=== PATIENT | female | born 1955 | race Caucasian/White ===

== ENCOUNTER 2020-09-21 14:06 | Inpatient (IN) | payer OTHER ==
[~2020-09-21] VITALS: Ht 167.6 cm; Wt 137.3 kg
[~2020-09-21 14:06] MED LIST: ESCI20; HYDMOR4 PO; LEVSOD25; NAPR500 PO; PENVK500 PO; RXTRAM50 PO; TRAM50 PO
[2020-09-21] MEDS ORDERED: Ventolin/Prove6.7 GM INH (14:18)
[2020-09-21] MEDS ORDERED: CITALOPRAM HBR20 M3 PO (14:18)
[2020-09-21] MEDS ORDERED: SYNTHROID137 MCG PO (14:19)
[2020-09-21] MEDS ORDERED: ROSU10TA PO (14:22)
[2020-09-21] MEDS ORDERED: B COMPLEX FORM0.4 MG PO (14:23)
[2020-09-21] MEDS ORDERED: Vitamin D2000 UNIT PO (14:23)
[2020-09-21] MEDS ORDERED: TURMERIC500 M2 PO (14:24)
[2020-09-21 14:35] LABS: BASOPHILS ABSOLUTE AUTO 0.03 K/mm3 (0.00-0.23); BASOPHILS PERCENT AUTO 0 % (0-2); EOSINOPHILS ABSOLUTE AUTO 0.01 K/mm3 (0.00-0.68); EOSINOPHILS PERCENT AUTO 0 % (0-6); Hematocrit 41.3 % (33.0-51.0); Hemoglobin 14.3 g/dL (11.5-16.0); IMMATURE GRAN ABSOLUTE AUTO 0.25 K/mm3 (0.00-0.10); IMMATURE GRAN PERCENT AUTO 3 % (0-1); LYMPHOCYTES ABSOLUTE AUTO 1.52 K/mm3 (0.84-5.20); LYMPHOCYTES PERCENT AUTO 15 % (21-46); MONOCYTES ABSOLUTE AUTO 0.92 K/mm3 (0.16-1.47); MONOCYTES PERCENT AUTO 9 % (4-13); Mean Corpuscular HGB 31.1 pg (26.0-34.0); Mean Corpuscular HGB Conc 34.6 g/dL (31.5-36.5); Mean Corpuscular Volume 90 fL (80-100); Mean Platelet Volume 9.1 fL (9.1-12.4); NEUTROPHILS ABSOLUTE AUTO 7.44 K/mm3 (1.96-9.15); NEUTROPHILS PERCENT AUTO 73 % (41-73); Platelet Count 259 K/mm3 (150-400); RDW Coefficient Variation 11.8 % (11.7-14.2); RDW Standard Deviation 38.6 fL (35.1-46.3); White Blood Cell Count 10.17 K/mm3 (4.00-11.30)
[2020-09-21 15:13] LABS: Alanine Aminotransfer (ALT/SGP 31 U/L (12-78); Albumin, Blood 2.5 g/dL (3.4-5.0); Albumin/Globulin Ratio 0.6 (0.8-1.8); Alk Phos 62 U/L (50-136); Anion Gap 10 mmol/L (6-16); Aspartate Aminotrans (AST/SGOT 38 U/L (12-37); Bilirubin, Total 0.4 mg/dL (0.1-1.0); Blood Urea Nitrogen 25 mg/dL (8-24); Bun/Creatinine Ratio 40.3 (12.0-20.0); CO2, Blood 27 mmol/L (21-32); Chloride, Blood 96 mmol/L (98-108); Creatinine, Blood 0.62 mg/dL (0.40-1.00); Globulin, Blood 4.5 g/dL (2.2-4.0); Glomerular Filtration Rate >60 (60-); Glucose, Blood 108 mg/dL (70-99); Potassium, Blood 3.5 mmol/L (3.5-5.5); Sodium, Blood 133 mmol/L (136-145); Troponin I <0.015 ng/mL (0.000-0.040)
[2020-09-21 15:14] LABS: Base Excess Venous 4.3 mmol/L; Bicarbonate Venous 27.3 mmol/L (24.0-30.0); PCO2 Venous 43.4 mmHg (38-42); PO2 Venous 43.2 mmHg (38-42); pH Blood Venous 7.43 (7.34-7.37)
[2020-09-21 16:15] LABS: SARS-Cov-2 (COVID-19) PCR, MMC POSITIVE (NEGATIVE)
[2020-09-21 19:25] LABS: U Amphetamine Screen Not Detected; U Barbituate Screen Not Detected; U Benzodiazapine Screen Not Detected; U Buprenorphine Screen Not Detected; U Cannabinoids Screen Not Detected; U Cocaine Screen Not Detected; U Methadone Screen Not Detected; U Methamphetamine Screen Not Detected; U Opiates Screen Not Detected; U Oxycodone Screen Not Detected; U Phencyclidine Screen Not Detected; U Propoxyphene Screen Not Detected
--- NOTE | 2020-09-22 03:48 | NUR ---
SHIFT SUMMARY PT ER ADMIT THIS SHIFT FOR COVID PNA. PT HAS BEEN STARED ON REMDESIVIR AND STEROIDS. SHE IS CURRENTLY ON 40% HEATED HIGH FLOW. SATS ABOVE 92%. LUNGS ARE DIMINISHED T/O. SHE DENIES SOB. PT INDEPENDENT TO THE BSC. PT A/OX4. NO ACUTE CHANGES SINCE ADMISSION. BED IN LOWEST POSITON, CALL LIGHT WITHIN REACH.
[2020-09-22 05:57] LABS: BASOPHILS ABSOLUTE AUTO 0.03 K/mm3 (0.00-0.23); BASOPHILS PERCENT AUTO 0 % (0-2); EOSINOPHILS PERCENT AUTO 0 % (0-6); Hematocrit 39.9 % (33.0-51.0); Hemoglobin 13.6 g/dL (11.5-16.0); IMMATURE GRAN ABSOLUTE AUTO 0.16 K/mm3 (0.00-0.10); IMMATURE GRAN PERCENT AUTO 2 % (0-1); LYMPHOCYTES ABSOLUTE AUTO 0.94 K/mm3 (0.84-5.20); LYMPHOCYTES PERCENT AUTO 11 % (21-46); MONOCYTES ABSOLUTE AUTO 0.38 K/mm3 (0.16-1.47); MONOCYTES PERCENT AUTO 4 % (4-13); Mean Corpuscular HGB 30.8 pg (26.0-34.0); Mean Corpuscular HGB Conc 34.1 g/dL (31.5-36.5); Mean Corpuscular Volume 91 fL (80-100); Mean Platelet Volume 9.4 fL (9.1-12.4); NEUTROPHILS ABSOLUTE AUTO 7.24 K/mm3 (1.96-9.15); NEUTROPHILS PERCENT AUTO 83 % (41-73); Platelet Count 283 K/mm3 (150-400); RDW Coefficient Variation 11.8 % (11.7-14.2); RDW Standard Deviation 39.2 fL (35.1-46.3); Red Blood Cell Count 4.41 M/mm3 (3.80-5.20); White Blood Cell Count 8.75 K/mm3 (4.00-11.30)
[2020-09-22 06:23] LABS: Anion Gap 6 mmol/L (6-16); Blood Urea Nitrogen 17 mg/dL (8-24); Bun/Creatinine Ratio 28.7 (12.0-20.0); CO2, Blood 29 mmol/L (21-32); Calcium, Blood 8.5 mg/dL (8.5-10.1); Chloride, Blood 99 mmol/L (98-108); Creatinine, Blood 0.59 mg/dL (0.40-1.00); Glomerular Filtration Rate >60 (60-); Glucose, Blood 152 mg/dL (70-99); Potassium, Blood 4.1 mmol/L (3.5-5.5); Sodium, Blood 134 mmol/L (136-145)
--- NOTE | 2020-09-22 11:44 | NUR ---
Admit: 09/21/20 Discharge: TBD Dx. Pneumonia due to COVID - 19 PCP: Piter Banuelos Fast Brim Pouncer: [facility] Physician: Humble Cotter Contact/gluer and wedger: Ronald Espinozaing, Family Member - [phone] [place]: Unknown
--- NOTE | 2020-09-22 13:59 | NUR ---
I had a wonderful visit with the patient: spent some time getting to know her. Fairly recently retired from over 30 years at [employer], and recently started reading the bible, which was a wonderful point of connection. I prayed for her full recovery from covid with no complications, spent some time reassuring her that she was in the right place, to rest and get the care she needed. She was very grateful for the visit.
--- NOTE | 2020-09-22 17:50 | NUR ---
SHIFT SUMMARY PATIENT DENIES PAIN AND NAUSEA, NO COUGH NOTED. MAINTAINING OXYGEN SATURATION ABOVE 92% ON AIRVO AT 40L/55% FI02. UP SBA TO BSC. POSITIVE BLOOD CULTURE TODAY, RUY STARTED. EATING AND DRINKING WELL. PLEASANT AND COOPERATIVE WITH CARE.
[2020-09-23 05:17] LABS: BASOPHILS ABSOLUTE AUTO 0.05 K/mm3 (0.00-0.23); BASOPHILS PERCENT AUTO 0 % (0-2); EOSINOPHILS PERCENT AUTO 0 % (0-6); Hematocrit 38.5 % (33.0-51.0); IMMATURE GRAN ABSOLUTE AUTO 0.48 K/mm3 (0.00-0.10); IMMATURE GRAN PERCENT AUTO 3 % (0-1); LYMPHOCYTES ABSOLUTE AUTO 1.64 K/mm3 (0.84-5.20); LYMPHOCYTES PERCENT AUTO 9 % (21-46); MONOCYTES ABSOLUTE AUTO 0.78 K/mm3 (0.16-1.47); MONOCYTES PERCENT AUTO 4 % (4-13); Mean Corpuscular HGB 30.8 pg (26.0-34.0); Mean Corpuscular HGB Conc 33.8 g/dL (31.5-36.5); Mean Corpuscular Volume 91 fL (80-100); Mean Platelet Volume 9.4 fL (9.1-12.4); NEUTROPHILS ABSOLUTE AUTO 15.68 K/mm3 (1.96-9.15); NEUTROPHILS PERCENT AUTO 84 % (41-73); Platelet Count 328 K/mm3 (150-400); RDW Coefficient Variation 11.9 % (11.7-14.2); RDW Standard Deviation 40.2 fL (35.1-46.3); Red Blood Cell Count 4.22 M/mm3 (3.80-5.20); White Blood Cell Count 18.63 K/mm3 (4.00-11.30)
[2020-09-23 05:36] LABS: Ferritin, Serum 233 ng/mL (8-252)
[2020-09-23 05:54] LABS: Alanine Aminotransfer (ALT/SGP 51 U/L (12-78); Albumin/Globulin Ratio 0.5 (0.8-1.8); Alk Phos 52 U/L (50-136); Anion Gap 6 mmol/L (6-16); Aspartate Aminotrans (AST/SGOT 54 U/L (12-37); Bilirubin, Total 0.2 mg/dL (0.1-1.0); Blood Urea Nitrogen 15 mg/dL (8-24); Bun/Creatinine Ratio 24.5 (12.0-20.0); CO2, Blood 24 mmol/L (21-32); Calcium, Blood 8.2 mg/dL (8.5-10.1); Chloride, Blood 106 mmol/L (98-108); Creatinine, Blood 0.61 mg/dL (0.40-1.00); Globulin, Blood 3.7 g/dL (2.2-4.0); Glomerular Filtration Rate >60 (60-); Glucose, Blood 141 mg/dL (70-99); Lactate Dehydrogenase (Ld),Bld 264 U/L (100-240); Magnesium, Blood 2.2 mg/dL (1.6-2.4); Phosphorus, Blood 2.7 mg/dL (2.5-4.9); Sodium, Blood 136 mmol/L (136-145); Total Protein, Blood 5.7 g/dL (6.4-8.2)
--- NOTE | 2020-09-23 06:05 | NUR ---
SOW FARM TECHNICIAN SUMMARY ALERT AND ORIENTED. AFFECT CHEERFUL WHEN SPOKEN TO. O2 PER AIRVO AT 40L/50%. MED TELE NORMAL SINUS IN THE 70'S. REMDESIVIR ADMINISTERED, WELL ANTIBIOTICS. NS CONTINURS AT 75 ML/HR FOR HYDRATION. DENIED PAIN THIS SHIFT. HAS BEEN RESTING QUIETLY WITH FEW INTERRUPTIONS NOTED, CALL LIGHT IN REACH. ISOLATION PRECAUTIONS MAINTAINED.
--- NOTE | 2020-09-23 17:20 | NUR ---
PT AOX4 AND PLEASANT PT HAS BEEN REMOVED FROM AIRVO AND IS ON OXIMIZER 6L. PT IS TOLERATING AT THIS TIME AND MAINTAINING LOW 90s. PT INDEPENDENT TO COMMODE AND CAN CALL APPROPRIATELY. NO DISTRESS NOTED MILD COUGH, BUT PT DENIES NEED FOR MEDICATION. WILL CONTINUE TO MONITOR.
[2020-09-24 05:50] LABS: BASOPHILS ABSOLUTE AUTO 0.04 K/mm3 (0.00-0.23); BASOPHILS PERCENT AUTO 0 % (0-2); EOSINOPHILS PERCENT AUTO 0 % (0-6); Hematocrit 35.1 % (33.0-51.0); IMMATURE GRAN ABSOLUTE AUTO 0.41 K/mm3 (0.00-0.10); IMMATURE GRAN PERCENT AUTO 2 % (0-1); LYMPHOCYTES ABSOLUTE AUTO 1.24 K/mm3 (0.84-5.20); LYMPHOCYTES PERCENT AUTO 7 % (21-46); MONOCYTES ABSOLUTE AUTO 0.72 K/mm3 (0.16-1.47); MONOCYTES PERCENT AUTO 4 % (4-13); Mean Corpuscular HGB 30.9 pg (26.0-34.0); Mean Corpuscular HGB Conc 34.2 g/dL (31.5-36.5); Mean Corpuscular Volume 91 fL (80-100); NEUTROPHILS ABSOLUTE AUTO 15.85 K/mm3 (1.96-9.15); NEUTROPHILS PERCENT AUTO 87 % (41-73); Platelet Count 335 K/mm3 (150-400); RDW Coefficient Variation 12.1 % (11.7-14.2); RDW Standard Deviation 40.1 fL (35.1-46.3); Red Blood Cell Count 3.88 M/mm3 (3.80-5.20); White Blood Cell Count 18.26 K/mm3 (4.00-11.30)
[2020-09-24 06:01] LABS: Anion Gap 5 mmol/L (6-16); Blood Urea Nitrogen 13 mg/dL (8-24); Bun/Creatinine Ratio 24.6 (12.0-20.0); CO2, Blood 29 mmol/L (21-32); Calcium, Blood 7.4 mg/dL (8.5-10.1); Chloride, Blood 106 mmol/L (98-108); Creatinine, Blood 0.53 mg/dL (0.40-1.00); Glomerular Filtration Rate >60 (60-); Glucose, Blood 143 mg/dL (70-99); Potassium, Blood 3.2 mmol/L (3.5-5.5); Sodium, Blood 140 mmol/L (136-145)
--- NOTE | 2020-09-24 06:26 | NUR ---
HIV NURSE SUMMARY IVF OF NS CONTINUES AT 50 ML/HR, REMDESIVIR GIVEN. MED TELE CONTINUES IN THE 70'S NSR. O2 AT 6L/MIN PER OXIMIZER. SATS CONTINUE IN THE 90'S. AFFECT CHEERFUL WHEN SPEAKING WITH STAFF. LUNG SOUNDS STILL DIMINISHED, BUT NO NOTED ACUTE RESP DISTRESS. ISOLATOIN PRECAUTIONS MAINTAINED. CALL LIGHT IN REACH
--- NOTE | 2020-09-24 18:57 | NUR ---
Shift Summary, The patient is A/OX4 to person, place, time and event. The patient has been pleasent and cooperative with her care. She is independent in the room and able to use the BSC. The patient is on nasal oxymizer at 3lpm and trending above 90% pulse ox. She has been titrated down from 6lpm this am. There has been no acute changes this shift. She is currently lying in her bed watching TV.
[2020-09-25 05:38] LABS: BASOPHILS ABSOLUTE AUTO 0.06 K/mm3 (0.00-0.23); BASOPHILS PERCENT AUTO 0 % (0-2); EOSINOPHILS PERCENT AUTO 0 % (0-6); Hematocrit 38.8 % (33.0-51.0); Hemoglobin 13.2 g/dL (11.5-16.0); IMMATURE GRAN ABSOLUTE AUTO 0.61 K/mm3 (0.00-0.10); IMMATURE GRAN PERCENT AUTO 4 % (0-1); LYMPHOCYTES ABSOLUTE AUTO 1.24 K/mm3 (0.84-5.20); LYMPHOCYTES PERCENT AUTO 8 % (21-46); MONOCYTES ABSOLUTE AUTO 0.54 K/mm3 (0.16-1.47); MONOCYTES PERCENT AUTO 4 % (4-13); Mean Corpuscular HGB 30.6 pg (26.0-34.0); Mean Corpuscular Volume 90 fL (80-100); NEUTROPHILS ABSOLUTE AUTO 12.35 K/mm3 (1.96-9.15); NEUTROPHILS PERCENT AUTO 84 % (41-73); Platelet Count 390 K/mm3 (150-400); RDW Standard Deviation 39.7 fL (35.1-46.3); Red Blood Cell Count 4.31 M/mm3 (3.80-5.20)
--- NOTE | 2020-09-25 06:11 | NUR ---
SHIFT SUMMARY- PT. A&O, ON 3.5L OXYMIZER. NO COMPLAINTS OF PAIN OR DISCOMFORT DURING THE NIGHT. SLEPT T/O THE NIGHT, NO APPARENT DISTRESS NOTED. CALL LIGHT WITHIN REACH AND SIDE RAILS UPX2. WILL CONT TO MONITOR.
[2020-09-25 06:26] LABS: Alanine Aminotransfer (ALT/SGP 47 U/L (12-78); Albumin, Blood 2.3 g/dL (3.4-5.0); Albumin/Globulin Ratio 0.6 (0.8-1.8); Alk Phos 55 U/L (50-136); Anion Gap 4 mmol/L (6-16); Aspartate Aminotrans (AST/SGOT 27 U/L (12-37); Bilirubin, Total 0.3 mg/dL (0.1-1.0); Blood Urea Nitrogen 11 mg/dL (8-24); Bun/Creatinine Ratio 19.8 (12.0-20.0); CO2, Blood 31 mmol/L (21-32); Calcium, Blood 8.3 mg/dL (8.5-10.1); Chloride, Blood 103 mmol/L (98-108); Creatinine, Blood 0.56 mg/dL (0.40-1.00); Globulin, Blood 3.6 g/dL (2.2-4.0); Glomerular Filtration Rate >60 (60-); Glucose, Blood 141 mg/dL (70-99); Potassium, Blood 3.3 mmol/L (3.5-5.5); Sodium, Blood 138 mmol/L (136-145); Total Protein, Blood 5.9 g/dL (6.4-8.2)
--- NOTE | 2020-09-25 17:51 | NUR ---
Shift Summary, The patient is A/0X4 TO PERSON, PLACE, TIME AND EVENT. THE PATIENT IS COPPERATIVE AND PLEASENT. She has been on 3.5lpm this am and was lowered to 3lpm and her pulse ox is averaging >90%. The patient worked with pt and she performed some leg exercises. Her pulse ox dripped during exercises but she is currently on her bedside eating and her pulse ox is 90%.
--- NOTE | 2020-09-25 18:21 | NUR ---
Update 09/25/20: Per chart review with Dr. Cotter this am, it is possible pt. will improve enough to discharge within 24-48 hours. Pt. lives with son who can assist her as needed. PT assessment indicates home with supervision will be appropriate. Pt. likely to need samples of Xarelto or Eliquise at discharge. Due to cost, will offer samples based on D/C med list.
--- NOTE | 2020-09-26 05:24 | NUR ---
SHIFT SUMMARY- PT. HAD NO ACUTE EVENTS OVERNIGHT. RESTED QUIETLY IN BED T/O THE NIGHT, NO APPARENT DISTRESS NOTED. ON 3L NC, VSS. DENIED COMPLAINTS DURING THE NIGHT. CALL LIGHT WITHIN REACH AND SIDE RAILS UPX2. WILL CONT TO MONITOR.
[2020-09-26 05:37] LABS: Hematocrit 41.2 % (33.0-51.0); Hemoglobin 13.9 g/dL (11.5-16.0); Mean Corpuscular HGB 30.6 pg (26.0-34.0); Mean Corpuscular HGB Conc 33.7 g/dL (31.5-36.5); Mean Corpuscular Volume 91 fL (80-100); Mean Platelet Volume 8.8 fL (9.1-12.4); Platelet Count 433 K/mm3 (150-400); RDW Coefficient Variation 12.1 % (11.7-14.2); RDW Standard Deviation 40.3 fL (35.1-46.3); Red Blood Cell Count 4.54 M/mm3 (3.80-5.20); White Blood Cell Count 15.31 K/mm3 (4.00-11.30)
[2020-09-26 06:07] LABS: Alanine Aminotransfer (ALT/SGP 45 U/L (12-78); Albumin, Blood 2.3 g/dL (3.4-5.0); Albumin/Globulin Ratio 0.6 (0.8-1.8); Alk Phos 57 U/L (50-136); Anion Gap 6 mmol/L (6-16); Aspartate Aminotrans (AST/SGOT 23 U/L (12-37); Bilirubin, Total 0.3 mg/dL (0.1-1.0); Blood Urea Nitrogen 13 mg/dL (8-24); Bun/Creatinine Ratio 23.5 (12.0-20.0); CO2, Blood 29 mmol/L (21-32); Calcium, Blood 8.2 mg/dL (8.5-10.1); Chloride, Blood 102 mmol/L (98-108); Creatinine, Blood 0.55 mg/dL (0.40-1.00); Globulin, Blood 3.7 g/dL (2.2-4.0); Glomerular Filtration Rate >60 (60-); Glucose, Blood 120 mg/dL (70-99); Sodium, Blood 137 mmol/L (136-145)
[2020-09-26 06:21] LABS: BASOPHILS PERCENT MAN 0 % (0-2); EOSINOPHILS PERCENT MAN 0 % (0-6); LYMPHOCYTES ABSOLUTE MAN 1.68 K/mm3 (0.84-5.20); LYMPHOCYTES PERCENT MAN 11 % (21-46); METAMYELOCYTE ABSOLUTE MAN 0.15 K/mm3 (0.00-0.00); METAMYELOCYTE PERCENT MAN 1 % (0-0); MONOCYTES ABSOLUTE MAN 0.91 K/mm3 (0.16-1.47); MONOCYTES PERCENT MAN 6 % (4-13); NEUTROPHILS ABSOLUTE MAN 12.55 K/mm3 (1.96-9.15); SEG NEUTROPHILS PERCENT MAN 82 % (41-73); TOTAL CELLS COUNTED 100
--- NOTE | 2020-09-26 11:23 | NUR ---
Spiritual care visit provided. Pt is much improved from my visit several days ago and said she is expecting to be discharged today. I said prayers of thankfulness and protection for her continued recovery. She expressed gratefulness for my visit today and for the previous visit also.
--- NOTE | 2020-09-26 15:58 | NUR ---
PT IS A/OX3, PLEASANT AND COOPERTIVE UP WITH MINIMAL ASSIST, THE PT APPEARS TO BE BREATHING EASILY ON O2 VIA OXYMIZER @ 3L/MIN. THE PT WORKED WITH THE PHYSICAL THERAPIST AND TOLERATED THE ACTIVITY BETTER THAN YESTERDAY, HOWEVER, HER O2 SAT'S DROPPED TO THE MID 80'S WITH ACTIVITY. PT IS SWITCHED TO NC THIS AFTERNOON. WILL CONTINUE TO MONITOR FOR CHANGES. CALL LIGHT IN REACH. PLAN FOR POSSIBLE DISCHARGE TOMMOROW
--- NOTE | 2020-09-27 06:23 | NUR ---
SHIFT SUMMARY- PT. ON 3L, SATS MAINTAINED. NO COMPLAINTS T/O THE NIGHT. APPEARED TO HAVE SLEPT COMFORTABLY DURING THE NIGHT, NO APPARENT DISTRESS NOTED. CALL LIGHT WITHIN REACH AND SIDE RAILS UPX2. WILL CONT TO MONITOR.
[2020-09-27] MEDS ORDERED: ACET325 PO (12:42)
[2020-09-27] MEDS ORDERED: FAMO40 PO (12:45)
[2020-09-27] MEDS ORDERED: GUAI600T33 PO (12:45)
[2020-09-27] MEDS ORDERED: IPRAT-ALBUT 0.5-3 ML (12:47)
[2020-09-27] MEDS ORDERED: POTA10T PO (12:48)
[2020-09-27] MEDS ORDERED: Vitamin B Comple1 EA PO (12:49)
[2020-09-27] MEDS ORDERED: LOW DOSE ASPIRI81 M1 PO (12:50)
[2020-09-27] MEDS ORDERED: Prednisone10 MG PO (12:50)
[2020-09-27] MEDS ORDERED: XARELTO10 M1 PO (12:51)
--- NOTE | 2020-09-27 16:10 | NUR ---
PT DISCHARGED @ APPROX 1610 VIA WHEELCHAIR. DISCHARGE INSTRUCTIONS REVIEWED. IV REMOVED AND SITE WNL. O2 DELIVERED BY [facility]. NEEDED RX FAXED TO PHARMACY.
== END 2020-09-27 16:00 | disposition home or self-care (01) | DRG 871 ==
LOC: ER 14:06 → ERHOLD 19:39 → MEDS 19:39
PROVIDERS: Emergency Medicine; Hospitalist; ADMIT Student in an Organized Health Care Education/Training Program
PROC: 8E0ZXY6 Isolation (ICD-10-PCS; principal; 2020-09-21)
PROC: XW033E5 Introduction of Remdesivir Anti-infective into Peripheral Vein, Percutaneous Approach, New Technology Group 5 (ICD-10-PCS; 2020-09-21)
PROC: 3E0333Z Introduction of Anti-inflammatory into Peripheral Vein, Percutaneous Approach (ICD-10-PCS; 2020-09-21)
DX: A41.89 Other specified sepsis (principal); U07.1 COVID-19; J12.82 Pneumonia due to coronavirus disease 2019; J96.01 Acute respiratory failure with hypoxia; Z66 Do not resuscitate; E87.6 Hypokalemia; J43.9 Emphysema, unspecified; I70.90 Unspecified atherosclerosis; E78.5 Hyperlipidemia, unspecified; E03.9 Hypothyroidism, unspecified; F17.290 Nicotine dependence, other tobacco product, uncomplicated; Z79.899 Other long term (current) drug therapy; Z98.890 Other specified postprocedural states; Z88.2 Allergy status to sulfonamides; Z88.5 Allergy status to narcotic agent; Z71.6 Tobacco abuse counseling
CPT/HCPCS: 36415; 71045; 71260; 80048; 80053; 82728; 82803; 83605; 83615; 83735; 83880; 84100; 84145; 84484; 85025; 85379; 86140; 87040; 93005; 93010; 94640; 94761; 94762; 96374-59; 96375-59; 97162; 97530; 97530-CQ; 99285-25; A9270; J0456; J1100; J1650; J2920; J2930; J3370; J7030; J7050; Q9967; U0004

== ENCOUNTER → 2022-11-12 | Outpatient (CLI) | payer OTHER ==
[~2022-11-12] MED LIST changes: +ACET325 PO; +B COMPLEX FORM0.4 MG PO; +CITALOPRAM HBR20 M3 PO; +FAMO40 PO; +GUAI600T33 PO; +IPRAT-ALBUT 0.5-3 ML; +LOW DOSE ASPIRI81 M1 PO; +POTA10T PO; +Prednisone10 MG PO; +ROSU10TA PO; +SYNTHROID137 MCG PO; +TURMERIC500 M2 PO; +Ventolin/Prove6.7 GM INH; +Vitamin B Comple1 EA PO; +Vitamin D2000 UNIT PO; +XARELTO10 M1 PO
== END | disposition home or self-care (01) ==
LOC: LAB SHORT 17:13 → LAB 17:13
DX: R82.90 Unspecified abnormal findings in urine (principal)
CPT/HCPCS: 87086

== ENCOUNTER 2022-12-15 04:56 | Inpatient (IN) | payer OTHER ==
[~2022-12-15] VITALS: Ht 170.2 cm; Wt 65.0 kg
[2022-12-15] VITALS (73 sets, daily range): BP systolic 71–176; BP diastolic 50–99
[2022-12-15 05:17] LABS: Base Excess Venous -5.3 mmol/L; Bicarbonate Venous 19.1 mmol/L (24.0-30.0); PCO2 Venous 66.4 mmHg (38-42); pH Blood Venous 7.16 (7.34-7.37)
[2022-12-15 05:24] LABS: Source, Urine Straight Cath
[2022-12-15 05:26] LABS: BASOPHILS ABSOLUTE AUTO 0.04 K/mm3 (0.00-0.23); BASOPHILS PERCENT AUTO 0 % (0-2); EOSINOPHILS ABSOLUTE AUTO 0.04 K/mm3 (0.00-0.68); EOSINOPHILS PERCENT AUTO 0 % (0-6); Hematocrit 37.9 % (33.0-51.0); Hemoglobin 12.8 g/dL (11.5-16.0); IMMATURE GRAN ABSOLUTE AUTO 0.39 K/mm3 (0.00-0.10); IMMATURE GRAN PERCENT AUTO 3 % (0-1); LYMPHOCYTES ABSOLUTE AUTO 4.52 K/mm3 (0.84-5.20); LYMPHOCYTES PERCENT AUTO 40 % (21-46); MONOCYTES ABSOLUTE AUTO 0.65 K/mm3 (0.16-1.47); MONOCYTES PERCENT AUTO 6 % (4-13); Mean Corpuscular HGB 32.7 pg (26.0-34.0); Mean Corpuscular HGB Conc 33.8 g/dL (31.5-36.5); Mean Corpuscular Volume 97 fL (80-100); Mean Platelet Volume 10.7 fL (9.1-12.4); NEUTROPHILS PERCENT AUTO 50 % (41-73); NRBC ABSOLUTE 0.05 K/mm3 (0.00-0.02); NRBC Auto 0.4 /100 WBC (0.0-0.2); Platelet Count 130 K/mm3 (150-400); RDW Coefficient Variation 14.6 % (11.7-14.2); RDW Standard Deviation 51.8 fL (35.1-46.3); Red Blood Cell Count 3.92 M/mm3 (3.80-5.20); White Blood Cell Count 11.34 K/mm3 (4.00-11.30)
[2022-12-15 05:36] LABS: Appearance, Urine Hazy (Clear); Bilirubin, Urine Neg (Neg); Blood, Urine 5+ (Neg); Color, Urine Yellow (P-Yellow); Glucose Qualitative, Urine 1+ (Neg); Ketones, Urine Neg (Neg); Leukocyte Esterase, Urine Neg (Neg); Nitrite, Urine Neg (Neg); Protein, Urine 3+ (Neg); Urobilinogen, Urine NORM (Normal)
[2022-12-15 05:41] LABS: Prothrombin Time Results 10.5 Sec (9.7-11.5)
[2022-12-15 05:49] LABS: Amorphous Light (0-Heavy); Bacteria Few /hpf; Squamous Epithelial Cells Many /hpf (Few); White Blood Cells, Urine 0-2 /hpf (0-5)
[2022-12-15 05:55] LABS: U Amphetamine Screen Not Detected; U Barbituate Screen Not Detected; U Benzodiazapine Screen Not Detected; U Buprenorphine Screen Not Detected; U Cannabinoids Screen DETECTED; U Cocaine Screen Not Detected; U Methadone Screen Not Detected; U Methamphetamine Screen Not Detected; U Opiates Screen Not Detected; U Oxycodone Screen Not Detected; U Phencyclidine Screen Not Detected; U Propoxyphene Screen Not Detected
[2022-12-15 06:04] LABS: Ethanol (Alcohol), Blood, Med <3 mg/dL; Magnesium, Blood 2.6 mg/dL (1.6-2.4); Salicylate 2.7 mg/dL (2.8-20.0)
[2022-12-15 06:18] LABS: Osmolality, Serum 270 mos/KG (275-300)
[2022-12-15 06:19] LABS: Alanine Aminotransfer (ALT/SGP 70 U/L (12-78); Albumin, Blood 3.8 g/dL (3.4-5.0); Albumin/Globulin Ratio 1.2 (0.8-1.8); Alk Phos 97 U/L (50-136); Anion Gap 12 mmol/L (6-16); Aspartate Aminotrans (AST/SGOT 205 U/L (12-37); Bilirubin, Total 0.3 mg/dL (0.1-1.0); Blood Urea Nitrogen 18 mg/dL (8-24); CO2, Blood 23 mmol/L (21-32); Chloride, Blood 89 mmol/L (98-108); Globulin, Blood 3.2 g/dL (2.2-4.0); Glomerular Filtration Rate 61 (60-); Glucose, Blood 221 mg/dL (70-99); Phosphorus, Blood 4.1 mg/dL (2.5-4.9); Potassium, Blood 3.9 mmol/L (3.5-5.5); Sodium, Blood 124 mmol/L (136-145)
[2022-12-15 06:20] LABS: Acetaminophen, Random <2.0 ug/mL (10.0-30.0)
--- NOTE | 2022-12-15 11:14 | NUR ---
100 MLS OF FENTANYL WASTED WITH TRICIA ALVAREZ RN AT 1100.
[2022-12-15 11:37] LABS: PCO2 Arterial 53.2 mmHg (35-45); PO2 Arterial 154 mmHg (80-100); pH Blood Arterial 7.31 (7.35-7.45)
--- NOTE | 2022-12-15 11:44 | NUR ---
PT ADMITTED TO ICU AT 09 FROM ER. PT INTUBATED IN ER FOR AIRWAY PROTECTION AFTER SEIZURE. VENT SETTINGS 16/350/70%/5. PT ARRIVED MINIMALLY RESPONSIVE, FENTANYL GTT STOPPED AT 0915 PRIOR TO TRANSFER TO ICU BED. FENTANYL WASTED W TRICIA ALVAREZ RN. PT'S PUPILS PINPOINT ON ARRIVAL. PT WITH POSSIBLE ABNORMAL MOVEMENT OF EXTREMITIES. EXTREMITIES RIDGID, AT TIMES ARMS WOULD COME UP ON CHEST, AND APPEARED TO BE DECORTICATE POSTURING AND AT OTHER TIMES PT APPEARED TO HAVE DECEREBRATE POSTURING, WITH ARMS TIGHT AT SIDES, TOES POINTED AND NECK FLEXED. PT ALSO NOTED TO HAVE FINE ARTIFACT ON EKG; SEIZURE ACTIVITY VS SHIVERING; ATIVAN GIVEN AND ARTIFACT STOPPED, EEG ORDERED. PT HYPOTENSIVE AT TIMES. PT ARRIVED W LEVOPHED AT 5MCG. DR BUSCH AT BEDSIDE WITHIN MINUTES OF ADMIT. CENTRAL LINE PLACED TO RIGHT FEM. AREA OOZING; FEM STOP PLACED W LIGHT PRESSURE. PT BRADYCARDIC IN THE 40'S, AT ONE POINT HR LOWERED TO 38; ATROPINE 1MG GIVEN W GOOD RESPONSE, BUT HR AGAIN TRENDED DOWNWARD TO 40'S. AT [address] BUSCH ASKED THAT DOPAMINE BE STARTED AT 10MCG. DOPAMINE HAD BEEN RUNNING UP TO 5MCG IN AN ATTEMPT TO INCREASE HR W/O EFFECT. ONCE DOPAMINE INCREASED TO 10MCG, HR DID INCREASE. LEVOPHED PLACED ON STANDBY SHORTLY AFTER FOR HYPERTENSION. ACTIVELY TITRATING DOPAMINE DOWN NOW PT CONTINUES TO BE HYPERTENSIVE. PT ARRIVED HYPOTHERMIC. BRYSON HUGGER PLACED ONCE BP STABLE. PT WAS 80.4, BRYSON HUGGER SET AT 38C. PT CHANGED TO FULL CODE PER FAMILY. SON AT BEDSIDE ALONG W PT'S SISTER; FAMILY UPDATED BY RN AND DR BUSCH. PT'S SON STATES SHE HAD STOPPED TAKING HER THYROID MEDS MONTHS AGO BECAUSE HER "THYROID LEVELS WHERE NORMAL".
--- NOTE | 2022-12-15 12:40 | NUR ---
OKAY TO TITRATE DOPAMINE FOR GOAL HR >50. TITRATING DOWN FOR HYPERTENSION AT THIS TIME. DOPAMINE AT 5MCG/KG/MIN. LEVOPHED OFF. VASOPRESSIN ORDERED, NEVER STARTED. LR AT 150CC/HR. PUPILS 3/3MM FIXED; ATROPINE GIVEN EARLIER. PT DOES RESPOND TO PAIN; WITHDRAWS. UNABLE TO CHECK GAG PT'S JAW IS LOCKED DOWN. PT COUGHED AND GRIMACED W ETT SUCTIONING.
--- NOTE | 2022-12-15 15:45 | NUR ---
DOPAMINE AT 4MCG, BP 93/71 MAP 80, HR 66 SINUS. PT GRIMACES W CARE, DOESNT ALLOW ORAL CARE, CLENCHES TEETH SHUT. EEG COMPLETE. PT HAS NOT HAD ANY SEDATION OTHER THAN ATIVAN 2MG ON ADMIT TO ICU. PUPILS 3/3MM FIXED, AGAIN ATROPINE GIVEN EARLIER.
[2022-12-15 16:13] LABS: BASOPHILS ABSOLUTE AUTO 0.02 K/mm3 (0.00-0.23); BASOPHILS PERCENT AUTO 0 % (0-2); EOSINOPHILS ABSOLUTE AUTO 0.01 K/mm3 (0.00-0.68); EOSINOPHILS PERCENT AUTO 0 % (0-6); Hematocrit 36.6 % (33.0-51.0); Hemoglobin 13.2 g/dL (11.5-16.0); IMMATURE GRAN ABSOLUTE AUTO 0.08 K/mm3 (0.00-0.10); IMMATURE GRAN PERCENT AUTO 1 % (0-1); LYMPHOCYTES ABSOLUTE AUTO 0.67 K/mm3 (0.84-5.20); LYMPHOCYTES PERCENT AUTO 6 % (21-46); MONOCYTES ABSOLUTE AUTO 0.68 K/mm3 (0.16-1.47); MONOCYTES PERCENT AUTO 6 % (4-13); Mean Corpuscular HGB 33.4 pg (26.0-34.0); Mean Corpuscular HGB Conc 36.1 g/dL (31.5-36.5); Mean Corpuscular Volume 93 fL (80-100); Mean Platelet Volume 11.7 fL (9.1-12.4); NEUTROPHILS PERCENT AUTO 88 % (41-73); Platelet Count 175 K/mm3 (150-400); RDW Coefficient Variation 14.5 % (11.7-14.2); RDW Standard Deviation 50.2 fL (35.1-46.3); Red Blood Cell Count 3.95 M/mm3 (3.80-5.20); White Blood Cell Count 12.16 K/mm3 (4.00-11.30)
--- NOTE | 2022-12-15 16:24 | NUR ---
DR OVALLES IN TO SEE PT, UPDATE GIVEN.
[2022-12-15 16:51] LABS: Albumin, Blood 3.1 g/dL (3.4-5.0); Albumin/Globulin Ratio 0.9 (0.8-1.8); Bilirubin, Total 0.3 mg/dL (0.1-1.0); Bun/Creatinine Ratio 15.5 (12.0-20.0); Calcium, Blood 7.3 mg/dL (8.5-10.1); Creatinine, Blood 0.84 mg/dL (0.40-1.00); Globulin, Blood 3.6 g/dL (2.2-4.0); Phosphorus, Blood 1.9 mg/dL (2.5-4.9); Potassium, Blood 5.1 mmol/L (3.5-5.5); Total Protein, Blood 6.7 g/dL (6.4-8.2)
--- NOTE | 2022-12-15 17:04 | NUR ---
1600 LABS CALLED TO [facility] ORDERED
--- NOTE | 2022-12-15 18:28 | NUR ---
DOPAMINE AT 5MCG. LEVOPHED REMAINS OFF. NS AT 150CC/HR. PIVOT 1.5 STARTED AT 30CC/HR; GOAL RATE. NA PHOS INFUSING. NO CHANGE IN NEURO ASSESS; PT REMAINS UNSEDATED, DOES NOT OPEN EYES OR FOLLLOW COMMAND. GRIMACES AND WITHDRAWS TO PAIN/NOXIOUS STIMULI.
--- NOTE | 2022-12-15 19:47 | NUR ---
ASSUMPTION OF CARE PT IS INTUBATED VIA ETT, INTACT AND PATENT TO VENT. BILATERAL BREATH SOUNDS PRESENT. SHE IS ON NO SEDATION, W/DRAWS TO TACTILE STIMULI-NO PURPOSEFUL MVT. SEIZURE ACTIVITY REPORTED EARLIER IN THE DAY, NONE NOTED AT THIS TIME. PT HAS DOPAMINE INFUSING TO MAINTAIN HR >50. PT IS SR ON THE MANAGER VALIDATION. BP WNL. OXYGEN SAT 100% AT THIS TIME. PT HAS TF INFUSING AT GOAL VIA OG TUBE. HERNANDES CATH INTACT PATENT AND DRAINING YELLOW URINE. RIGHT GROIN CVL REPORTED TO BE BLEEDING ON PRIOR SHIFT REQUIRING FEM STOP PLACEMENT. FEM STOP WAS REMOVED ON PRIOR SHIFT, NO ACTIVE BLEEDING NOTED AT TIME OF ASSESSMENT. DRESSING IS STAINED W/BLOOD AND INTACT.
--- NOTE | 2022-12-15 20:22 | NUR ---
SPOKE TO PT SON SHIRA AND UPDATED HIM ON PT CONDITION VIA PHONE
[2022-12-16] VITALS (98 sets, daily range): BP systolic 73–128; BP diastolic 54–82
[2022-12-16 04:30] LABS: PCO2 Arterial 46.3 mmHg (35-45); PO2 Arterial 79.6 mmHg (80-100); pH Blood Arterial 7.32 (7.35-7.45)
[2022-12-16 04:54] LABS: BASOPHILS ABSOLUTE AUTO 0.02 K/mm3 (0.00-0.23); BASOPHILS PERCENT AUTO 0 % (0-2); EOSINOPHILS ABSOLUTE AUTO 0.01 K/mm3 (0.00-0.68); EOSINOPHILS PERCENT AUTO 0 % (0-6); Hematocrit 37.1 % (33.0-51.0); Hemoglobin 12.9 g/dL (11.5-16.0); IMMATURE GRAN ABSOLUTE AUTO 0.04 K/mm3 (0.00-0.10); IMMATURE GRAN PERCENT AUTO 0 % (0-1); LYMPHOCYTES ABSOLUTE AUTO 0.41 K/mm3 (0.84-5.20); LYMPHOCYTES PERCENT AUTO 3 % (21-46); MONOCYTES ABSOLUTE AUTO 0.43 K/mm3 (0.16-1.47); MONOCYTES PERCENT AUTO 4 % (4-13); Mean Corpuscular HGB 32.7 pg (26.0-34.0); Mean Corpuscular HGB Conc 34.8 g/dL (31.5-36.5); Mean Corpuscular Volume 94 fL (80-100); NEUTROPHILS ABSOLUTE AUTO 11.21 K/mm3 (1.96-9.15); NEUTROPHILS PERCENT AUTO 93 % (41-73); NRBC ABSOLUTE 0.02 K/mm3 (0.00-0.02); NRBC Auto 0.2 /100 WBC (0.0-0.2); Platelet Count 112 K/mm3 (150-400); RDW Coefficient Variation 14.8 % (11.7-14.2); RDW Standard Deviation 51.7 fL (35.1-46.3); Red Blood Cell Count 3.94 M/mm3 (3.80-5.20); White Blood Cell Count 12.12 K/mm3 (4.00-11.30)
[2022-12-16 05:21] LABS: Magnesium, Blood 1.9 mg/dL (1.6-2.4)
[2022-12-16 05:32] LABS: Bilirubin, Total 0.3 mg/dL (0.1-1.0); Bun/Creatinine Ratio 9.3 (12.0-20.0); Calcium, Blood 7.1 mg/dL (8.5-10.1); Creatinine, Blood 1.08 mg/dL (0.40-1.00); Globulin, Blood 3.1 g/dL (2.2-4.0); Phosphorus, Blood 2.7 mg/dL (2.5-4.9); Potassium, Blood 3.2 mmol/L (3.5-5.5); Total Protein, Blood 6.1 g/dL (6.4-8.2)
--- NOTE | 2022-12-16 07:00 | NUR ---
ASSUMPTION OF CARE: ASSUMED CARE OF PATIENT WITH JOSE LUIS SAEZ. PATIENT INTUBATED AND SEDATED. TOLERATING THE ETT AT THIS TIME. PROPOFOL GTT AT 10 MCG/KG/MIN, DOPAMINE AT 7 MCG/KG/MIN, AND NS AT 150 ML/HR. ETT IS 7.5 CM WITH PLACEMENT 23.0 CM AT THE LIPS. VENT SETTINGS: 16/350/5/40%. PATIENT IS NOT RESPONDING TO VOICE AT THIS TIME. NO TWITCHING OR MUSCLE SPASMS NOTED.
--- NOTE | 2022-12-16 17:16 | NUR ---
Pt resting in bed with eyes closed and intubated. No family at bedside. Discussed case with Primary RN Karyn. Reviewed plan of care. Palliative Care will F/U for supportive visits when family is at bedside.
--- NOTE | 2022-12-16 19:15 | NUR ---
ASSUMPTION OF CARE: RECEIVED REPORT FROM MELLISA RN AND JOSE LUIS RN. PT INTUBATED AND SEDATED. PROPOFOL TURNED DOWN TO 10 MCG/KG/HR FOR ASSESSMENT. ABLE TO WAKE UP AND RESPOND TO VERBAL STIMULI. FOLLOWS COMMANDS AND ANSWERS YES AND NO QUESTIONS. PT BECOMES AGITATED WHEN SEDATION TURNED DOWN PULLS ON RESTRAINTS AND FIGHTS THE VENTILATOR. SEDATION TURNED BACK UP TO 25 MCG/KG/HR FOR COMFORT AND COMPLIANCE, WITH AN ADDITIONAL DOSE OF 1MG ATIVAN GIVEN PER APR. PT DENIES PAIN WHEN AWAKE. VENT SETTINGS AC/VC 16/350/5/30% WITH SATS >92%. LUNG SOUNDS CLEAR AND DIM. SUCTIONING SMALL AMOUNTS OF THICK, WHITE SECRETIONS FROM ET TUBE. DOPAMINE INFUSING AT 6 MCG/KG/MIN TO MAINTAIN MAP >65. HR 70'S-80'S. TUBE FEED AT GOAL. HERNANDES IN PLACE FOR STRICT I&O, PATENT AND DRAINING TO GRAVITY. CENTRAL LINE TO RIGHT GROIN, INFUSING. NS AT 150 ML/HR.
--- NOTE | 2022-12-16 19:21 | NUR ---
SHIFT SUMMARY: NEURO: NO SEIZURE ACTIVITY OR TWITCHING NOTED DURING THE SHIFT. DURING THE SEDATION INTERRUPTION, PATIENT EXPERIENCED AGITATION (PULLING AT RESTRAINTS AND TURNING BODY SIDE TO SIDE) AND VENT INTOLERANCE. PATIENT DID NOT FOLLOW DIRECTIONS THROUGHOUT THE SHIFT. PATIENT WITHDREW FROM NOXIOUS STIMULI. NO ABNORMAL POSTURING NOTED. PATIENT OPENED EYES ONCE TO NOXIOUS STIMULI AT THE END OF SHIFT. CARDIAC: PATIENT CONTINUES TO REQUIRE DOPAMINE GTT TO MAINTAIN MAPS >65. ABLE TO TITRATE TO 6 MCG/KG/MIN. HR IN THE 70S. PULSES FAINT, BUT PRESENT IN ALL FOUR EXTREMITIES. HANDS AND FEET ARE COOL. RIGHT FOOT IS RED/PURPLE ON THE BOTTOM AND SIDES. PATIENT'S SON REPORTS THAT THIS WAS PRESENT PRIOR TO ADMISSION. RESPIRATORY: PATIENT INTUBATED. VENT 7.5CM WITH PLACEMENT 23.0CM AT THE LIPS. SETTINGS 16/350/5/30%. LUNG SOUNDS WHEEZY AT TIMES. TOLERATING VENT WITH PROPOFOL GTT AT 15-20 MCG/KG/MIN. GI/: HERNANDES IN PLACE AND DRAINING FREELY. URINE OUTPUT IS YELLOW IN COLOR. NO SEDIMENT OR FOUL ODOR NOTED. TUBE FEED CONTINUES AT GOAL RATE OF 30 ML/HR. NO BOWEL MOVEMENT THIS SHIFT. PSYCHSOCIAL: PATIENT'S SISTER AND BOTH SONS TO VISIT THE PATIENT TODAY. THE OLDER SON REPORTED THAT HE AND HIS YOUNGER BROTHER ARE NOT ON SPEAKING TERMS AND THEREFORE HE IS "LEFT OUT OF THE LOOP". FAMILY CALM AND SUPPORTIVE AT THE BEDSIDE. MUSCULOSKELETAL: PATIENT HAS EQUAL MOVEMENT IN ALL FOUR EXTREMITIES. BOTH ANKLES ARE STIFF AND HAVE MINIMAL ROM.
[2022-12-17] VITALS (97 sets, daily range): BP systolic 48–157; BP diastolic 32–106
[2022-12-17 04:14] LABS: BASOPHILS ABSOLUTE AUTO 0.02 K/mm3 (0.00-0.23); BASOPHILS PERCENT AUTO 0 % (0-2); EOSINOPHILS PERCENT AUTO 0 % (0-6); Hemoglobin 11.9 g/dL (11.5-16.0); IMMATURE GRAN ABSOLUTE AUTO 0.06 K/mm3 (0.00-0.10); IMMATURE GRAN PERCENT AUTO 1 % (0-1); LYMPHOCYTES ABSOLUTE AUTO 0.52 K/mm3 (0.84-5.20); LYMPHOCYTES PERCENT AUTO 5 % (21-46); MONOCYTES ABSOLUTE AUTO 0.26 K/mm3 (0.16-1.47); MONOCYTES PERCENT AUTO 2 % (4-13); Mean Corpuscular HGB 33.1 pg (26.0-34.0); Mean Corpuscular Volume 95 fL (80-100); NEUTROPHILS PERCENT AUTO 92 % (41-73); NRBC ABSOLUTE 0.02 K/mm3 (0.00-0.02); NRBC Auto 0.2 /100 WBC (0.0-0.2); Platelet Count 95 K/mm3 (150-400); RDW Coefficient Variation 15.5 % (11.7-14.2); RDW Standard Deviation 54.4 fL (35.1-46.3); Red Blood Cell Count 3.59 M/mm3 (3.80-5.20); White Blood Cell Count 10.76 K/mm3 (4.00-11.30)
[2022-12-17 05:38] LABS: Albumin, Blood 2.6 g/dL (3.4-5.0); Albumin/Globulin Ratio 0.9 (0.8-1.8); Bilirubin, Total 0.2 mg/dL (0.1-1.0); Calcium, Blood 7.3 mg/dL (8.5-10.1); Phosphorus, Blood 1.4 mg/dL (2.5-4.9); Potassium, Blood 3.6 mmol/L (3.5-5.5); Total Protein, Blood 5.6 g/dL (6.4-8.2)
--- NOTE | 2022-12-17 06:04 | NUR ---
SHIFT SUMMARY: PT REMAINS INTUBATED AND SEDATED T/O THE SHIFT. AWAKENS TO VERBAL STIMULI, FOLLOWS DIRECTIONS, ABLE TO NOD YES AND NO TO QUESTIONS BUT BECOMES AGITATED AND PULLS AGAINST RESTRAINTS WHEN SEDATION TURNED DOWN. PROPOFOL AT 20 MCG/KG/MIN. DOPAMINE AT 6 MCG/KG/MIN, ATTEMPTED TO TITRATE DOWN T/O THE SHIFT BUT WAS UNABLE. MAP REMAINS >65. HR 70'S-80'S. VENT SETTINGS AC/VC 16/350/5/30%. SPO2 >90%. THICK SECRETIONS BEING SUCTIONED THROUGH ET TUBE. NO SEIZURE LIKE ACTIVITY NOTED T/O SHIFT. TUBE FEED REMAINS AT GOAL. HERNANDES IN PLACE FOR STRICT I&O, PATENT AND DRAINING TO GRAVITY. CENTRAL LINE IN RIGHT GROIN, REMAINS PATENT. NS AT 150 ML/HR. SON CALLED IN THE NIGHT AND UPDATED TO PLAN OF CARE.
--- NOTE | 2022-12-17 07:00 | NUR ---
ASSUMPTION OF CARE: ASSUMED CARE OF PATIENT WITH SAM VEGAS. PATIENT INTUBATED AND RESTING IN BED. LIMBS ARE STILL CURRENTLY. VENT SETTINGS: 16/250/5/30%. SPO2 IN THE MID 90S. MAPS >65. HR IN THE 80S. HERNANDES CATHETER IN PLACE AND DRAINING FREELY. URINE OUTPUT IS CLEAR YELLOW.
--- NOTE | 2022-12-17 11:00 | NUR ---
EXTUBATION: PATIENT FOLLOWING DIRECTIONS THIS AM. PROPOFOL STOPPED AT 09:35. PATIENT BECAME INCREASINGLY AGITATED WITH THE ETT. PATIENT EXTUBATED AT 10:25. PATIENT FAILED NC AND MASK. PATIENT HAD A PERIOD OF NONRESPONSIVENESS. SKIN COLOR RODRIGUEZ. DR. BUSCH AT BEDSIDE. JAW THRUST PERFORMED. PATIENT BECAME RESPONSIVE AGAIN. PLACED ON BIPAP.
--- NOTE | 2022-12-17 15:30 | NUR ---
BIPAP + RESTRAINTS Plan of care discussed with Dr Rosenberg. Pt continues to reach for BiPAP mask when restraints are not in place and remove it despite 1:1 sitter and precedex. For this reason, restraints remain in place for patient safety, despite using BiPAP. Sitter remains in place because pt still continues to slide down in bed and sit forward to reach face to restrained hand and also tries to pull at central line to right groin. While precedex is being used, titration is judicious and will not be ordered for increased dosing of 1.4 mcg/kg/hr due to frail resp status per v/o Dr Rosenberg.
--- NOTE | 2022-12-17 17:15 | NUR ---
AFTERNOON DECLINE: PATIENT AGITATED THROUGHOUT THE AFTERNOON RELATED TO BIPAP. SITTER OBTAINED. PATIENT CONTINUES TO BE ABLE TO SUCCESSFULLY INTERRUPT BIPAP THERAPY. PATIENT AGITATED AND SWATTING AT STAFF. DISCUSSED WITH DR. BUSCH AND PATIENT STARTED ON PRECEDEX DRIP. DRIP TITRATED UP WHILE MONITORING HEMODYNICS. PATIENT INITIALLY TOLERATED. AROUND 16:15, PATIENT BECAME INCREASINGLY NONRESPONSIVE AND BLOOD PRESSURES DECLINED WITH MAPS IN THE 40S. DR. BUSCH AT BEDSIDE. NS BOLUS STARTED. PRECEDEX GTT STOPPED. PATIENT REGAINED ABILITY TO FOLLOW DIRECTIONS AND OPEN EYES. ATTEMPTING TO ANSWER QUESTIONS AT TIMES. ABLE TO NOD HEAD IN RESPONSE TO QUESTIONS. BOLUS AND STOPPING OF PRECEDEX PROVIDED SOME IMPROVEMENT. DISCUSSED WITH DR. BUSCH. RESTARTED DOPAMINE GTT. BLOOD PRESSURES ARE IMPROVING. PATIENT CONTINUES TO ATTEMPT TO PULL MASK OFF. SITTER AT BEDSIDE. TEMPERATURE CONTINUES TO BE LOW. WHEN BLOOD PRESSURES WERE LOW, DISCONTINUED WARMING EFFORTS. USED RECTAL PROBE TO VERIFY THAT THE HERNANDES CORE TEMPERATURE WAS READING CORRECTLY.
[2022-12-17 17:34] LABS: Hematocrit 26.7 % (33.0-51.0)
--- NOTE | 2022-12-17 17:56 | NUR ---
INTUBATION: DR. BUSCH, 2 RTs AND 2 RNs TO BEDSIDE PREPPING FOR INTUBATION. 1758: 50 MG PROPOFOL IV PUSH 1759: INTUBATION BY DR. BUSCH. 8.0 ET TUBE, 23 CM AT GUMS. + ETCO2 COLOR CHANGE, BILATERAL BREATH SOUNDS EQUAL 1802: OG TUBE PLACED
[2022-12-17 18:22] LABS: Bun/Creatinine Ratio 12.7 (12.0-20.0); Calcium, Blood 7.9 mg/dL (8.5-10.1); Creatinine, Blood 1.02 mg/dL (0.40-1.00); Potassium, Blood 4.2 mmol/L (3.5-5.5)
[2022-12-17 18:46] LABS: PCO2 Venous 63 mmHg (38-42); pH Blood Venous 7.17 (7.34-7.37)
[2022-12-17 18:47] LABS: Base Excess Venous -5.7 mmol/L; Bicarbonate Venous 19.5 mmol/L (24.0-30.0)
--- NOTE | 2022-12-17 19:15 | NUR ---
ASSUMPTION OF CARE: RECEIVED REPORT FROM SAM RN AND MELLISA RN. PT INTUBATED AND SEDATED. SEDATION TURNED DOWN TO 10 MCG/KG/MIN DURING ASSESSMENT. PT ABLE TO WAKE UP AND RESPOND TO VERBAL STIMULI. SHAKES HEAD YES AND NO TO QUESTIONS AND FOLLOWS COMMANDS, DENIES PAIN. PROPOFOL TURNED BACK UP TO 15 MCG/KG/MIN AFTER ASSESSMENT FOR COMFORT AND VENT COMPLIANCE. PT STILLS AROUSES EASILY, BUT IS RESTING. VENT SETTINGS AC/VC 16/350/5/40%. SPO2 >94%. SUCTIONING SMALL, THICK SECRETIONS FROM ET TUBE. DOPAMINE INFUSING AT 5 MCG/KG/MIN TO MAINTAIN MAP >65. SR WITH HR 70'S-80'S. BEAR HUGGER ON PT TO AID IN WARMING, TEMP AT 96.[address], PATENT AND DRAINING YELLOW URINE. CENTRAL LINE TO RIGHT GROIN, PATENT BUT OOZING AROUND INSERTION SITE. TUBE FEED AT GOAL. NS AT 150 ML/HR. BED LOW AND LOCKED.
--- NOTE | 2022-12-17 19:28 | NUR ---
SHIFT SUMMARY: NEURO: THIS MORNING PATIENT OPENING EYES TO VERBALI STIMULI. NODDING HEAD IN RESPONSE TO QUESTIONS. FOLLOWING DIRECTIONS TO SQUEEZE HANDS. POST EXTUBATION, PATIENT CONTINUED TO NOD HEAD AND MOUTH ANSWERS TO STAFF. HOWEVER, DURING TRIAL OF NC, MASK, AND BIPAP, PATIENT CONTINUED TO ATTEMPT TO PULL O2 DEVICE OFF. PATIENT WOULD NOD HEAD THAT SHE UNDERSTOOD TO LEAVE IT IN PLACE, AND THEN WOULD SHIMMY DOWN IN BED AND ATTEMPT TO PULL OFF THE O2 DELIVERY DEVICE. ONCE REINTUBATED, PATIENT PLACED ON PROPOFOL AT 30 MCG/KG/MIN. PATIENT RESTING COMFORTABLY IN BED AND TOLERATING THE VENT AT THE END OF SHIFT. RESPIRATORY: PATIENT EXTUBATED IN THE AM. PATIENT DID NOT TOLERATE NC, MASK OR BIPAP. ON BIPAP, PATIENT CYCLED BETWEEN VERY LOW MINUTE VENTILATIONS TO VERY HIGH MINUTE VENTILATIONS. PATIENT EXPERIENCED A DECLINE LATE AFTERNOON (SEE NURSE'S NOTE) THAT REQUIRED THAT PATIENT BE REINTUBATED. 7.5CM ETT PLACED AT 23.0 CM AT THE GUMS. VENT SETTINGS 16/350/5/40%. CARDIAC: ABLE TO WEEN PATIENT OFF OF DOPAMINE GTT. PATIENT WAS OFF FOR ABOUT 3 HOURS. DURING THE AFTERNOON, PATIENT SHOWED A HEMODYNAMIC DECLINE (SEE NURSES NOTE) AND REQUIRED STARTING THE DOPAMINE. PATIENT'S BLOOD PRESSURES AND MAPS INCREASED. MAPS >65. ATTEMPTED TO TITRATE THE DOPAMINE AGAIN, BUT PATIENT'S HR IN THE 40S. CONTINUED DOPAMINE GTT AT 5 MCG/KG/MIN. GI/: NO BOWEL MOVEMENT DURING THE SHIFT. ONCE RE-INTUBATED, OGT PLACED, PLACEMENT VERIFIED, AND TUBE FEEDINGS RESUMED AT 30ML/HR PER DR BUSCH. HERNANDES CATHETER IN PLACE AND DRAINING FREELY. URINE IS AN PARKER/DARK YELLOW COLOR AND CLOUDY. DRAINING FREELY. MUSCULOSKELETAL/INTEGUMENTARY: RIGHT FOOT CONTINUES TO BE A DARK RED/PURPLE IN COLOR - BLANCHABLE. DISCUSSED PINK SKIN ALTERATION ON LIGHT THIGH/KNEE WITH DR. BUSCH. CREAM ORDERED AND APPLIED. PATIENT MOVING ALL FOUR LIMBS FREELY. PSYCHSOCIAL: PATIENT'S ELDER SON ERIKA CAME TO VISIT THE PATIENT. HE REPORTED FEELING DISTRESSED SEEING THE PATIENT IN HER CONDITION AND REQUESTED THAT DR. OVALLES CALL HIM RATHER THAN WAITINGL FOR HIM TO COME BY. (MESSAGE LEFT FOR DR. OVALLES THAT SON WAS AT BEDSIDE). PATIENT'S SON SHIRA CALLED THIS AFTERNOON FOR AN UPDATE.
[2022-12-18] VITALS (94 sets, daily range): BP systolic 83–126; BP diastolic 55–85
[2022-12-18 03:49] LABS: BASOPHILS ABSOLUTE AUTO 0.01 K/mm3 (0.00-0.23); BASOPHILS PERCENT AUTO 0 % (0-2); EOSINOPHILS PERCENT AUTO 0 % (0-6); Hematocrit 30.8 % (33.0-51.0); Hemoglobin 10.6 g/dL (11.5-16.0); IMMATURE GRAN ABSOLUTE AUTO 0.08 K/mm3 (0.00-0.10); IMMATURE GRAN PERCENT AUTO 1 % (0-1); LYMPHOCYTES ABSOLUTE AUTO 0.65 K/mm3 (0.84-5.20); LYMPHOCYTES PERCENT AUTO 6 % (21-46); MONOCYTES ABSOLUTE AUTO 0.46 K/mm3 (0.16-1.47); MONOCYTES PERCENT AUTO 4 % (4-13); Mean Corpuscular HGB 32.7 pg (26.0-34.0); Mean Corpuscular HGB Conc 34.4 g/dL (31.5-36.5); Mean Corpuscular Volume 95 fL (80-100); Mean Platelet Volume 10.5 fL (9.1-12.4); NEUTROPHILS ABSOLUTE AUTO 9.41 K/mm3 (1.96-9.15); NEUTROPHILS PERCENT AUTO 89 % (41-73); NRBC ABSOLUTE 0.03 K/mm3 (0.00-0.02); NRBC Auto 0.3 /100 WBC (0.0-0.2); Platelet Count 66 K/mm3 (150-400); RDW Standard Deviation 56.3 fL (35.1-46.3); Red Blood Cell Count 3.24 M/mm3 (3.80-5.20); White Blood Cell Count 10.61 K/mm3 (4.00-11.30)
[2022-12-18 04:08] LABS: Bun/Creatinine Ratio 11.2 (12.0-20.0); Calcium, Blood 8.1 mg/dL (8.5-10.1); Creatinine, Blood 1.07 mg/dL (0.40-1.00); Phosphorus, Blood 2.1 mg/dL (2.5-4.9); Potassium, Blood 4.2 mmol/L (3.5-5.5)
--- NOTE | 2022-12-18 05:57 | NUR ---
SHIFT SUMMARY: PT REMAINS INTUBATED AND SEDATED. PROPOFOL AT 35 MCG/KG/MIN FOR COMFORT AND VENT COMPLIANCE. VENT SETTINGS 16/350/5/40%. SPO2 >94%. CARDIAC MONITORING SHOWS SR WITH RATE 70'S. DOPAMINE AT 5 MCG/KG/MIN FOR MAP >65. PT AWAKENS TO VERBAL STIMULI AND FOLLOWS COMMANDS. TUBE FEED INFUSING AT GOAL. NO BM THIS SHIFT. HERNANDES PATENT AND DRAINING TO GRAVITY YELLOW URINE. CENTRAL LINE TO RIGHT GROIN HAS SOME MINIMAL OOZING AROUND INSERTION SITE. PERIORBITAL AND SCLERAL EDEMA NOTED WITH SOME MINIMAL OOZING IN RIGHT EYE. NS AT 150 ML/HR. SON MARY CALLED FOR AN UPDATE.
--- NOTE | 2022-12-18 07:00 | NUR ---
ASSUMPTION OF CARE: ASSUMED CARE OF PATIENT WITH SAM VEGAS. PATIENT CALMLY RESTING IN BED. VENT SETTINGS 16/350/5/40%. 8.0 CM ETT PLACED AT 23.0 CM AT THE GUMS. PATIENT NOT RESPONSIVE TO VERBAL STIMULI AT THIS TIME. HERNANDES IN PLACE AND DRAINING FREELY. URINE IS A DARK YELLOW. TUBE FEED INFUSING AT 30 ML/HR.
[2022-12-18 09:56] LABS: PCO2 Arterial 44.7 mmHg (35-45); PO2 Arterial 89.6 mmHg (80-100); pH Blood Arterial 7.38 (7.35-7.45)
--- NOTE | 2022-12-18 18:05 | NUR ---
END OF SHIFT SUMMARY: NEURO: PATIENT WITHDRAWING TO PAIN IN ALL 4 EXTREMITIES THROUGHOUT THE SHIFT. PUPILS ARE SLUGGISH. NO CORNEAL REFLEX NOTED. DURING SEDATION INTERRUPTION, PATIENT NODDING HER HEAD IN RESPONSE TO QUESTIONS. ABLE TO FOLLOW DIRECTIONS OF SQUEEZING HANDS AND WIGGLING TOES. ABLE TO HALF OPEN EYES. QUICKLY BECAME AGITATED: PULLING AT RESTRAINTS AND BITTING ETT. AGITATATION QUICKLY ABATED ONCE PROPOFOL RESTARTED. PATIENT STAYED AT 35 MCG/KG/MIN THROUGHOUT THE SHIFT. RESPIRATORY: PATIENT INTUBATED. VENT SETTINGS 16/350/5/40% THROUGHT THE SHIFT. PATIENT TOLERATED WELL. 8.0 CM ETT PLACED AT 23.0 CM AT THE GUMS. SPO2 >95%. CARDIAC: DOPAMINE GTT CONTINUES AT 5 MCG/KG/MIN. MAPS >65. IN THE MORNING, SBPS IN THE HIGH 80S. BY THE END OF THE SHIFT, SBPS 100S-110S. CONTINUES TO HAVE EDEMA IN HER FEET, ANKLES, FACE, AND HANDS. ABLE TO PALPATE BOTH PEDIS PULSES THROUGHOUT THE DAY. GI/: HERNANDES IN PLACE AND DRAINING FREELY. URINE IMPROVED IN COLOR TO A LIGHT YELLOW. PATIENT PASSING GAS. BOWEL CARE GIVEN. INTEGUMENTARY: RIGHT FOOT REMAINS RED/PURPLE IN COLOR. PINK SKIN CHANGES TO LEFT THIGH AND KNEES IMPROVED WITH NYSTATIN CREAM. PSYCHSOCIAL: PATIENT VISITED BY BOTH SONS AT DIFFERENT TIMES TODAY.
--- NOTE | 2022-12-18 19:15 | NUR ---
ASSUMPTION OF CARE: RECEIVED REPORT FROM FLORIAN TOVAR. PT INTUBATED AND SEDATED. VENT SETTINGS AC/VC 16/350/5/40%. SPO2 >94%. PROPOFOL TURNED DOWN TO 20 MCG/KG/MIN FOR ASSESSMENT. PT ABLE TO OPEN EYES TO VERBAL STIMULI, DENIES DISCOMFORT. ABLE TO SHAKE HEAD YES/NO TO QUESTIONS AND FOLLOW COMMANDS. PROPOFOL TURNED BACK UP 30 MCG/KG/MIN FOR COMFORT R/T PT FIGHTING VENT AND PULLING AGAINST RESTRAINTS. DOPAMINE AT 4 MCG/KG/MIN FOR MAP >65. SR, HR 80'S. TUBE FEED AT GOAL THROUGH OGT. NO BM YET. HERNANDES DRAINING TO GRAVITY. CENTRAL LINE TO RIGHT GROIN HAS SOME OOZING AT INSERTION SITE, PATENT AND INFUSING. SCLERAL EDEMA NOTED BILATERALLY. SEE SHIFT ASSESSMENT FOR FULL ASSESSMENT.
[2022-12-19] VITALS (90 sets, daily range): BP systolic 81–137; BP diastolic 51–99
[2022-12-19 04:00] LABS: BASOPHILS ABSOLUTE AUTO 0.01 K/mm3 (0.00-0.23); BASOPHILS PERCENT AUTO 0 % (0-2); EOSINOPHILS ABSOLUTE AUTO 0.01 K/mm3 (0.00-0.68); EOSINOPHILS PERCENT AUTO 0 % (0-6); Hematocrit 29.1 % (33.0-51.0); IMMATURE GRAN ABSOLUTE AUTO 0.17 K/mm3 (0.00-0.10); IMMATURE GRAN PERCENT AUTO 2 % (0-1); LYMPHOCYTES ABSOLUTE AUTO 0.83 K/mm3 (0.84-5.20); LYMPHOCYTES PERCENT AUTO 11 % (21-46); MONOCYTES ABSOLUTE AUTO 0.64 K/mm3 (0.16-1.47); MONOCYTES PERCENT AUTO 9 % (4-13); Mean Corpuscular HGB 32.8 pg (26.0-34.0); Mean Corpuscular HGB Conc 34.4 g/dL (31.5-36.5); Mean Corpuscular Volume 95 fL (80-100); Mean Platelet Volume 10.4 fL (9.1-12.4); NEUTROPHILS ABSOLUTE AUTO 5.78 K/mm3 (1.96-9.15); NEUTROPHILS PERCENT AUTO 78 % (41-73); NRBC ABSOLUTE 0.04 K/mm3 (0.00-0.02); NRBC Auto 0.5 /100 WBC (0.0-0.2); Platelet Count 62 K/mm3 (150-400); RDW Coefficient Variation 16.5 % (11.7-14.2); RDW Standard Deviation 57.7 fL (35.1-46.3); Red Blood Cell Count 3.05 M/mm3 (3.80-5.20); White Blood Cell Count 7.44 K/mm3 (4.00-11.30)
[2022-12-19 04:17] LABS: Bun/Creatinine Ratio 16.9 (12.0-20.0); Creatinine, Blood 0.89 mg/dL (0.40-1.00); Potassium, Blood 3.7 mmol/L (3.5-5.5)
--- NOTE | 2022-12-19 06:13 | NUR ---
SHIFT SUMMARY: REMAINS INTUBATED AND SEDATED. NO ACUTE CHANGES OVERNIGHT. VENT SETTINGS AC/VC 16/350/5/40%. SPO2 >94%. THICK, SCANT SECRETIONS. ET TUBE 8.0, 23 AT TEETH. PROPOFOL AT 40 MCG/KG/MIN FOR VENT COMPLIANCE. PT AWAKENS TO VERBAL STIMULI, FOLLOWS DIRECTION. DOPAMINE AT 5 MCG/KG/MIN FOR MAP >65. SR, HR 80'S. TUBE FEED AT GOAL THROUGH OGT. NO BM. HERNANDES DRAINING YELLOW URINE TO GRAVITY. CENTRAL LINE TO RIGHT GROIN REMAINS PATENT AND INFUSING. SCLERAL EDEMA PRESENT BILATERALLY. SON ARELIS CALLED FOR UPDATE.
--- NOTE | 2022-12-19 07:09 | NUR ---
ASSUME CARE: I have assumed care of this patient.
--- NOTE | 2022-12-19 17:42 | NUR ---
SHIFT SUMMARY: Pt able to follow commands and KRAMER. Lasix given today. Dopamine drip continues. Good UOP. Ronald updated at bedside. Joe updated via telephone.
--- NOTE | 2022-12-19 20:30 | NUR ---
ASSUMED CARE AT 1900 PT LAYING IN BED INTUBATED AT SHIFT CHANGE. SHE OPENS HER EYES AND FOLLOWS DIRECTIONS SELECTIVLY; PROPOFOL INFUSING AT 25MCG/KG/MIN; WILL REACH FOR THE ETT WHEN OUT OF RESTRAINTS. VENT SETTINGS AC/VC 16/350/5/35%. AFEBRILE. HR 80'S; SBP 120'S, MAP 60-80'S; DOPAMINE INFUSING AT 5MCG/KG/MIN. OG IN PLACE WITH PIVOT INFUSING AT 30ML/HR WITH 30ML WATER FLUSHES Q4HR; NO BM YET; PRN GIVEN WITH PM MEDS. HERNANDES IN PLACE AND DRAINING TO GRAVITY. SEE SHIFT ASSESSMENT FOR FULL ASSESSMENT.
[2022-12-20] VITALS (88 sets, daily range): BP systolic 82–133; BP diastolic 51–94
[2022-12-20 04:43] LABS: BASOPHILS ABSOLUTE AUTO 0.02 K/mm3 (0.00-0.23); BASOPHILS PERCENT AUTO 0 % (0-2); EOSINOPHILS ABSOLUTE AUTO 0.01 K/mm3 (0.00-0.68); EOSINOPHILS PERCENT AUTO 0 % (0-6); Hematocrit 28.3 % (33.0-51.0); Hemoglobin 9.8 g/dL (11.5-16.0); IMMATURE GRAN ABSOLUTE AUTO 0.24 K/mm3 (0.00-0.10); IMMATURE GRAN PERCENT AUTO 4 % (0-1); LYMPHOCYTES ABSOLUTE AUTO 0.82 K/mm3 (0.84-5.20); LYMPHOCYTES PERCENT AUTO 14 % (21-46); MONOCYTES ABSOLUTE AUTO 0.74 K/mm3 (0.16-1.47); MONOCYTES PERCENT AUTO 12 % (4-13); Mean Corpuscular HGB 33.1 pg (26.0-34.0); Mean Corpuscular HGB Conc 34.6 g/dL (31.5-36.5); Mean Corpuscular Volume 96 fL (80-100); Mean Platelet Volume 10.9 fL (9.1-12.4); NEUTROPHILS ABSOLUTE AUTO 4.15 K/mm3 (1.96-9.15); NEUTROPHILS PERCENT AUTO 69 % (41-73); NRBC ABSOLUTE 0.07 K/mm3 (0.00-0.02); NRBC Auto 1.2 /100 WBC (0.0-0.2); Platelet Count 63 K/mm3 (150-400); RDW Coefficient Variation 16.6 % (11.7-14.2); Red Blood Cell Count 2.96 M/mm3 (3.80-5.20); White Blood Cell Count 5.98 K/mm3 (4.00-11.30)
[2022-12-20 05:09] LABS: Albumin, Blood 2.6 g/dL (3.4-5.0); Albumin/Globulin Ratio 0.8 (0.8-1.8); Bilirubin, Total 0.4 mg/dL (0.1-1.0); Bun/Creatinine Ratio 20.8 (12.0-20.0); Calcium, Blood 8.1 mg/dL (8.5-10.1); Creatinine, Blood 0.87 mg/dL (0.40-1.00); Globulin, Blood 3.1 g/dL (2.2-4.0); Magnesium, Blood 2.7 mg/dL (1.6-2.4); Phosphorus, Blood 1.2 mg/dL (2.5-4.9); Potassium, Blood 3.6 mmol/L (3.5-5.5); Thyroid Stimulating Hormone 18.6 uIU/mL (0.360-4.800); Total Protein, Blood 5.7 g/dL (6.4-8.2)
--- NOTE | 2022-12-20 06:44 | NUR ---
END OF SHIFT SUMMARY NO ACUTE EVENTS OVERNIGHT. PT CONT TO BE INTUBATED WITH VENT SETTINGS AC/VC 16/350/5/35%; MOD THICK SECREATIONS FROM ETT. PROPOFOL TITRATED UP TO 30MCG/KG/MIN TO REACH GOAL OF RASS-2. AFEBRILE. HR 60-80'S; SBP 100-120; DOPAMINE TITRATED DOWN TO 3MCG/KG/MIN. OG IN PLACE WITH PIVOT INFUSING AT GOAL; NO BM THIS SHIFT. HERNANDES IN PLACE AND DRAINING TO GRAVITY. RT FEM CENTRAL LINE PATENT. PT SON CALLED AND WAS GIVEN UPDATE. WILL REPORT TO AM RN WHEN AVAILABLE.
--- NOTE | 2022-12-20 08:45 | NUR ---
SHIFT ASSESSMENT ASSUMED CARE OF PT @ 0700. PT INITIALLY VENTILATED AND SEDATED, SBT INITIATED @ 0840, SETTINGS- PS-7/30% c SATS >90%. PROPOFOL REMAINS ON, PT VERY ANXIOUS BUT FOLLOWING COMMANDS, KRAMER. DOPAMINE TITRATED DOWN TO 2MCG/KG/MIN FOR MAP GOAL >65. HERNANDES CATH DRAINING YELLOW URINE. OGT c TF @ GOAL RATE. NO BM. WILL MONITOR SILVIA.
--- NOTE | 2022-12-20 18:13 | NUR ---
SHIFT SUMMARY PT REMAINS INTUBATED AND SEDATED, SBT FROM ~0819-2104, TOLERATED WELL WITH LIGHT SEDATION. DURING SBT PT FOLLOWING COMMANDS, KRAMER, BUT WILL GRAB ETT WITH LOOSENED RESTRAINTS. NOW BACK ON AC-16/350/5/30% c SATS >90%. PROPOFOL AND DOPAMINE GTT CONTINUE, SEE FLOWSHEET. TF CONTINUES AT GOAL. TEMP PROBE HERNANDES DRAINING YELLOW URINE, AFEBRILE. NO OTHER ACUTE CHANGES NOTED.
--- NOTE | 2022-12-20 21:36 | NUR ---
PATIENT HAVING LARGE AMT OF CLEAR TO LIGHT YELLOW ORAL SECRETIONS, APPEARS TO BE GAGGING ON ETT. OG REMAINS IN PLACE CHECKED WITH AIR BOLUS. 5 CC RESIDUAL VIA OG. DOCTOR CHELSEY CALLED AND NOTIFIED AND ORDER FOR ZOFRAN OBTAINED
[2022-12-21] VITALS (91 sets, daily range): BP systolic 69–126; BP diastolic 49–84
[2022-12-21 04:27] LABS: BASOPHILS ABSOLUTE AUTO 0.02 K/mm3 (0.00-0.23); BASOPHILS PERCENT AUTO 0 % (0-2); EOSINOPHILS ABSOLUTE AUTO 0.01 K/mm3 (0.00-0.68); EOSINOPHILS PERCENT AUTO 0 % (0-6); Hematocrit 30.8 % (33.0-51.0); Hemoglobin 10.2 g/dL (11.5-16.0); IMMATURE GRAN ABSOLUTE AUTO 0.13 K/mm3 (0.00-0.10); IMMATURE GRAN PERCENT AUTO 2 % (0-1); LYMPHOCYTES PERCENT AUTO 10 % (21-46); MONOCYTES ABSOLUTE AUTO 0.96 K/mm3 (0.16-1.47); MONOCYTES PERCENT AUTO 12 % (4-13); Mean Corpuscular HGB 32.3 pg (26.0-34.0); Mean Corpuscular HGB Conc 33.1 g/dL (31.5-36.5); Mean Corpuscular Volume 98 fL (80-100); Mean Platelet Volume 10.6 fL (9.1-12.4); NEUTROPHILS ABSOLUTE AUTO 6.09 K/mm3 (1.96-9.15); NEUTROPHILS PERCENT AUTO 76 % (41-73); NRBC Auto 1.2 /100 WBC (0.0-0.2); Platelet Count 70 K/mm3 (150-400); RDW Coefficient Variation 16.9 % (11.7-14.2); RDW Standard Deviation 60.3 fL (35.1-46.3); Red Blood Cell Count 3.16 M/mm3 (3.80-5.20); White Blood Cell Count 8.01 K/mm3 (4.00-11.30)
[2022-12-21 05:02] LABS: Albumin, Blood 2.7 g/dL (3.4-5.0); Anion Gap 1 mmol/L (6-16); Blood Urea Nitrogen 27 mg/dL (8-24); Bun/Creatinine Ratio 34.7 (12.0-20.0); CO2, Blood 36 mmol/L (21-32); Calcium, Blood 8.2 mg/dL (8.5-10.1); Chloride, Blood 109 mmol/L (98-108); Creatinine, Blood 0.78 mg/dL (0.40-1.00); Glomerular Filtration Rate 83 (60-); Glucose, Blood 119 mg/dL (70-99); Phosphorus, Blood 1.8 mg/dL (2.5-4.9); Potassium, Blood 3.6 mmol/L (3.5-5.5); Sodium, Blood 146 mmol/L (136-145)
--- NOTE | 2022-12-21 05:44 | NUR ---
SUMMARY PATIENT INTUBATED AND SEDATED WITH PROPOFOL 30 MCG, AWAKENS TO VERBAL STIMULI FOLLOWING SIMPLE DIRECTIONS. CONTINUES TO REACH FOR ETT WHEN AWAKE. ETT IN PLACE WITH VENT AC 16, TV 350, PEEP 5, FIO2 30% CONTINUE TO HAVE COPIOUS AMT OF ORAL SECRETIONS MOSTLY CLEAR AT TIMES HAVING YELLOW BILE APPEARANCE. ZOFRAN GIVEN WITH NO CHANGE. OG REMAINS IN PLACE WITH PIVOT 1.5 AT GOAL. RESIDUAL AT MIDNOC 80 CC REFED AND LARGE AMT OF AIR REMOVED. DOPAMINE TITRATED T/O NIGHT CONTINUES AT LOW DOSE OF 5 MCG.
--- NOTE | 2022-12-21 08:38 | NUR ---
ASSUMED CARE I ASSUMED CARE OF THIS PATIENT AT 0700. BEDSIDE SHIFT REPORT COMPLETED WITH GUY HIGH. DOPAMINE @ 5MC/KG/HR, PROPOFOL @ 30 MCG/KG/MIN. NO FAMILY AT BEDSIDE. INTUBATED ON VC 16/350/5/30% WITH SPO2 89-91%. RR 17-20. PATIENT CONTINUOUSLY VOMITING AROUND ETT. NO SECRETIONS FROM ETT WHEN DEEP SUCTIONED. TF TURNED OFF AND REGLAN 5MG IV X [address] SINGH TO BEDSIDE DURING REPORT AND ORDER RECEIVED TO ATTEMPT TO TURN OFF DOPAMINE AND ADMINISTER ALBUMIN AND LASIX ONE TIME. WHEN DOPAMINE TURNED OFF, PATIENT BP DROPPED TO MAP LESS THAN 60. NOTIFIED DR. BARBOSA AND ORDER RECEIVED TO AWAIT ALBUMIN AND LASIX THEN TRY AGAIN. DR. BARBOSA ALSO NOTIFIED ABOUT ABSENT BOWEL TONES AND FREQUENT VOMITING. DISCUSSED NEED FOR ABD CT TODAY.
--- NOTE | 2022-12-21 11:30 | NUR ---
PATIENT TO CT VIA BED WITH ASSISTANCE OF TRANSPORTER AND RT.
--- NOTE | 2022-12-21 11:55 | NUR ---
BACK FROM CT TO ROOM 8. PATIENT VOMITED DURING CT.
--- NOTE | 2022-12-21 12:50 | NUR ---
OGT PLACED TO LIS FOR CONTINUOUS VOMITING.
--- NOTE | 2022-12-21 18:22 | NUR ---
SHIFT SUMMARY PATIENT REMAINS INTUBATED AND SEDATED. PROPOFOL @ 10MCG/KG/MIN, DOPAMINE DOWN TO 3MCG/KG/HR. PATIENT IS ABLE TO OPEN EYES, NOD HEAD YES/NO AND MAKE EYE CONTACT NOW. PATIENT WAS ABLE TO SHAKE HEAD NO WHEN ASKED IF SHE WAS IN PAIN. LUNG SOUNDS REMAIN COARSE, BUT IS IMPROVED FROM EARLIER. NO MORE VOMITING EPISODES SINCE PLACING OGT TO SUCTION. TOTAL OF 1700ML OUT OF OGT. TF REMAINS OFF. NO BM THIS SHIFT, DULCOLAX SUPPOSITORY ADMINISTERED PER EMAR. CT ABD COMPLETED THIS SHIFT AND ABD IS LESS FIRM. HERNANDES PATENT AND DRAINED 600ML. NO OTHER CHANGES THIS SHIFT.
--- NOTE | 2022-12-21 20:12 | NUR ---
PATIENT REMAINS INTUBATED AND SEDATED, PROPOFOL 10 MCG, PATIENT AWAKENS TO SLIGHT STIMULI NODING YES AND NO TO SIMPLE QUESTIONS, KRAMER GENERALIZED WEAKNESS. VENT SET AC/VC 16, TV 350, PEEP 8, FIO2 60%. SUCTIONING SMALL AMT CLEAR WHITE SPUTUM. OG IN PLACE TO LIS, DRAINING BROWN BILE. DOPAMINE 4 MCG CONTINUES FOR HYPOTENSION.
[2022-12-22] VITALS (97 sets, daily range): BP systolic 93–145; BP diastolic 48–114
[2022-12-22 04:54] LABS: Hematocrit 26.8 % (33.0-51.0); Hemoglobin 8.7 g/dL (11.5-16.0); Mean Corpuscular HGB 32.3 pg (26.0-34.0); Mean Corpuscular HGB Conc 32.5 g/dL (31.5-36.5); Mean Corpuscular Volume 100 fL (80-100); NRBC ABSOLUTE 0.06 K/mm3 (0.00-0.02); NRBC Auto 0.6 /100 WBC (0.0-0.2); Platelet Count 73 K/mm3 (150-400); RDW Coefficient Variation 16.9 % (11.7-14.2); RDW Standard Deviation 60.8 fL (35.1-46.3); Red Blood Cell Count 2.69 M/mm3 (3.80-5.20); White Blood Cell Count 10.75 K/mm3 (4.00-11.30)
[2022-12-22 05:37] LABS: BAND PERCENT MAN 14 % (0-8); BASOPHILS PERCENT MAN 0 % (0-2); EOSINOPHILS PERCENT MAN 0 % (0-6); LYMPHOCYTES ABSOLUTE MAN 0.53 K/mm3 (0.84-5.20); LYMPHOCYTES PERCENT MAN 5 % (21-46); MONOCYTES PERCENT MAN 1 % (4-13); SEG NEUTROPHILS PERCENT MAN 80 % (41-73); TOTAL CELLS COUNTED 100
[2022-12-22 05:59] LABS: Anion Gap Unable to Calculate mmol/L (6-16); Blood Urea Nitrogen 32 mg/dL (8-24); Bun/Creatinine Ratio 39.8 (12.0-20.0); CO2, Blood 36 mmol/L (21-32); Calcium, Blood 8.4 mg/dL (8.5-10.1); Chloride, Blood 115 mmol/L (98-108); Glomerular Filtration Rate 80 (60-); Glucose, Blood 114 mg/dL (70-99); Phosphorus, Blood 1.9 mg/dL (2.5-4.9); Potassium, Blood 3.6 mmol/L (3.5-5.5); Sodium, Blood 149 mmol/L (136-145)
--- NOTE | 2022-12-22 06:07 | NUR ---
SUMMARY PATIENT REMAINS INTUBATED AND SEDATED WITH PROPOFOL 10MCG. AWAKENS TO SLIGHT STIMULI, KRAMER WITH GENERALIZED WEAKNESS. ETT WITH VENT AC 16, TV 350, PEEP 8, FIO2 55% SUCTIONING SMALL AMT WHITE SPUTUM VIA ETT. MIN ORAL SECRETIONS T/O NIGHT. OG REMAINS IN PLACE TO LIS NIGHT PROGRESSED BILE HAS LIGHTENED AND IS NOW MORE GREEN/BROWN. DOPAMINE REMAINS 4 MCG FOR HYPOTENSION TO KEEP MAP>65.
--- NOTE | 2022-12-22 07:15 | NUR ---
ASSUMPTION OF CARE: ASSUMED CARE OF PATIENT WITH ERICKA PERALES. PATIENT RESTING IN BED. PROPOFOL CONTINUES AT 10 MCG/KG/MIN. PATIENT APPEARS COMFORTABLE. NO SIGNS OF RESTLESSNESS. TOLERATING THE ETT AND VENT. VENT SETTINGS AT 16/350/8/50%. SPO2 AT 100%. DOPAMINE REMAINED AT 4 MCG/KG/MIN THROUGHOUT THE NIGHT. CURRENT SBPS IN THE MID TO HIGH 90S. MAP AT 65. OUTPUT INTO OGT IS DARK GREEN. HERNANDES IS IN PLACE AND DRAINING FREELY. URINE OUTPUT IS A DARK YELLOW.
--- NOTE | 2022-12-22 11:59 | NUR ---
Case Conference: Met with Dr. Morris, pt's brother Joe, son Joe Hayden and sister in law Nena at the bedside. The family express their concerns that pt's mentation had been changing for some time prior to this hospitalization. It appears the hypothyroidism has been ruled out as the primary cause of respiratory failure, as thyroid level correction is not reversing pt's condition. Per family, the pt had made it clear she did not wish to be placed on intubation or have CPR, and has written directive stating this as well. However, due to the available information in ED, the pt's son Ronald elected for intubation and full code at that time. Since the family has had time to reflect, they have decided to change pt's code status to DNR. This RN discussed by phone with broderick Cardenas, who wasn't present for the conversation with Dr. Morris this morning, but is in agreement that DNR is ultimately the pt's wishes.
[2022-12-22 12:07] LABS: HEPARIN INDUCED PLATELET AB 0.061 OD (0.000-0.400)
--- NOTE | 2022-12-22 12:10 | NUR ---
SEDATION INTERRUPTION: PROPOFOL ON AT 10 MCG/KG/MIN DURING THE MORNING. SEDATION INTERRUPTION STARTED AT 11:45. PATIENT OPENING EYES WITH VERBAL CUEING. ABLE TO WIGGLE TOES AND SQUEEZE HANDS. PATIENT DENIES PAIN OR NAUSEA. PATIENT NODS THAT SHE CAN FEEL LIGHT FINGER SQUEEZE IN BOTH HANDS. NO SIGNS OF AGITATION OR DISCOMFORT.
--- NOTE | 2022-12-22 17:59 | NUR ---
SHIFT SUMMARY: NEURO: PATIENT OPENING EYES TO VERBAL CUES THROUGHOUT THE SHIFT. DURING SEDATION INTERRUPTION, PATIENT ABLE TO MOVE LIMBS INDEPENDENTLY (PUT ARMS OVER HER HEAD AND KICKED FOOT BOARD WITH HER FEET). IN ADDITION, OPENING EYES MORE EASILY, TRACKING WITH HER EYES, ATTEMPTING TO TURN HER HEAD AND FOLLOWIND DIRECTIONS ABLE. PATIENT INCREASINGLY AGITATED DURING SEDATION VACATION AND REQUIRED RETURN OF PROPOFOL GTT TO PROTECT PATIENT AND AIRWAY. PROPOFOL AT 5 MCG/KG/MIN AT END OF SHIFT. RESPIRATORY: PATIENT MAINTAINED 8.0 CM ETT AT 23.0 CM AT THE GUMS. PATIENT ENDED THE SHIFT ON AC/VC 16/350/5/40%. PATIENT TOLERATED SPONTANEOUS BREATHING TRIAL FOR ABOUT 2 HOURS WITH SUPPORT OF 12/5/40%. LUNG SOUNDS WHEEZY AT TIMES. CARDIAC: THROUGHOUT THE SHIFT, ABLE TO TITRATE PATIENT OFF OF DOPAMINE GTT. PATIENT TOLERATED IVF BOLUS, ALBUMIN, AND OT OF LASIX. SBPS RANGED FRMO 110S TO 140S ONCE OFF OF THE DOPAMINE GTT. MAPS >65. PEDIS PULSES PALPABLE THROUGHOUT THE SHIFT. GI/: NO NAUSEA NOTED THROUGHOUT THE SHIFT. WHEN ON SEDATION INTERRUPTION, PATIENT DENIED NAUSEA. OGT TO LIS WITH OUTPUT VARYING FROM DARK GREEN TO CANDELARIA. PATIENT HAD TWO SMALL/MEDIUM LIQUID BOWEL MOVEMENTS. PATIENT PASSING FLATUS. ABDOMEN STAYED MILDLY DISTENDED, SOFT TO PALPATE. HERNANDES IN PLACE AND DRAINING FREELY. OUTPUT TRANSITIONED TO A LIGHT YELLOW POST BOLUS, ALBUMIN AND LASIX. PATIENT RESPONDED WELL TO LASIX. PSYCHSOCIAL: PATIENT EXPERIENCED AGITATION DURING SEDATION INTERRUPTION THAT RESOLVED WITH PROPOFOL. PATIENT DID NOT REACH FOR ETT PER RN INSTRUCTIONS DURING RESPOSITIONING AND DURING SEDATION INTERRUPTION. PATIENT'S BROTHER, SISTER IN LAW AND YOUNGER SON AT BEDSIDE THIS MORNING AND ABLE TO SPEAK WITH DR. BARBOSA. THEY ALL SEEM TO UNDERSTAND THE SITUATION AND BE REALISTIC ABOUT THE PATIENT'S CONDITION. THEY REPORTED APPRECIATION FOR DR. BARBOSA'S TIME AND EXPLANATIONS.
--- NOTE | 2022-12-22 19:17 | NUR ---
ASSUMED CARE OF PT AT 1900. REPORT RECEIVED AT BEDSIDE. PT PRESENTS IN BED. INTUBATED AND SEDATED. NO DISTRESS TO NOTE. WILL REVIEW CHART AND PLAN OF CARE FOR THIS PT.
[2022-12-23] VITALS (41 sets, daily range): BP systolic 91–166; BP diastolic 52–89
--- NOTE | 2022-12-23 00:43 | NUR ---
PT TOLERATES Q 2 HOUR TURNS IN BED. ADEQUATE URINE OUTPUT. NO S/S ADVERSE REACTIONS TO ANTIBIOTIC THERAPY TO NOTE. MINIMAL SECRETIONS RETURNED FROM ETT. MAINTAINS SATURATIONS >90 PERCENT WITH CURRENT VENT SETTINGS. WILL CONTINUE TO MONITOR.
[2022-12-23 04:42] LABS: Hematocrit 21.5 % (33.0-51.0); Hemoglobin 6.9 g/dL (11.5-16.0); Mean Corpuscular HGB 32.9 pg (26.0-34.0); Mean Corpuscular HGB Conc 32.1 g/dL (31.5-36.5); Mean Corpuscular Volume 102 fL (80-100); Mean Platelet Volume 10.5 fL (9.1-12.4); NRBC ABSOLUTE 0.03 K/mm3 (0.00-0.02); NRBC Auto 0.4 /100 WBC (0.0-0.2); Platelet Count 82 K/mm3 (150-400); RDW Standard Deviation 62.5 fL (35.1-46.3); White Blood Cell Count 7.72 K/mm3 (4.00-11.30)
[2022-12-23 05:02] LABS: BAND PERCENT MAN 1 % (0-8); BASOPHILS PERCENT MAN 0 % (0-2); EOSINOPHILS PERCENT MAN 0 % (0-6); LYMPHOCYTES ABSOLUTE MAN 0.77 K/mm3 (0.84-5.20); LYMPHOCYTES PERCENT MAN 10 % (21-46); MONOCYTES PERCENT MAN 4 % (4-13); NEUTROPHILS ABSOLUTE MAN 6.63 K/mm3 (1.96-9.15); SEG NEUTROPHILS PERCENT MAN 85 % (41-73); TOTAL CELLS COUNTED 100
[2022-12-23 05:07] LABS: Anion Gap 3 mmol/L (6-16); Blood Urea Nitrogen 35 mg/dL (8-24); Bun/Creatinine Ratio 48.9 (12.0-20.0); CO2, Blood 33 mmol/L (21-32); Calcium, Blood 8.3 mg/dL (8.5-10.1); Chloride, Blood 114 mmol/L (98-108); Creatinine, Blood 0.72 mg/dL (0.40-1.00); Glomerular Filtration Rate 91 (60-); Glucose, Blood 98 mg/dL (70-99); Phosphorus, Blood 1.5 mg/dL (2.5-4.9); Potassium, Blood 3.1 mmol/L (3.5-5.5); Sodium, Blood 150 mmol/L (136-145)
--- NOTE | 2022-12-23 06:32 | NUR ---
CALL MADE TO DR BARBOSA THIS MORING CONCERNING AM LABS. ORDERS RECEIVED. NO S/S BLEEDING NOTED. HGB 6.9. WILL DO REDRAW AT NOON. DR BARBOSA CONSIDERING IF HEMODILUTION FROM PREVIOUS SHIFT BOLUSES. PT HAS VACATION SEDATION THIS MORNING. DOES BECOME VERY RESTLESS. DOES RESPOND WITH NODDING HER HEAD 'YES' OR 'NO' PT CURRENTLY BACK TO SEDATION. MINIMAL RETURN FROM ETT WITH SUCTIONING. PT HAS HAD A LOT OF FLATUS THROUGH THE NIGHT. OGT WITH RETURN OF LIGHT GREEN LIQUID. WILL CONTINUE TO MONITOR PT, AND WILL REPORT OFF TO ONCOMING RN.
--- NOTE | 2022-12-23 07:00 | NUR ---
ASSUMPTION OF CARE: ASSUMED CARE OF PATIENT WITH GUY DSOUZA. PATIENT RESTING CALMLY IN BED. TOLERATING THE VENT. ETT 8.0 CM IN SIZE AND AT 23.0 CM AT THE GUMS. VENT SETTINGS 16/350/5/40%. SPO2 97%. SBPS IN THE 130S. MAPS >65. STRONG PULSES IN ALL EXTREMITIES. DECREASED EDEMA IN BLE. OGT CONNECT TO LIS. CLEAR GREEN OUTPUT IN THE TUBING. HERNANDES IN PLACE AND DRAINING FREELY. URINE IS YELLOW IN COLOR WITH NO SEDIMENT NOTED.
--- NOTE | 2022-12-23 09:46 | NUR ---
"Spiritual Care | Family/Nurse request Pt. is non responsive, Pts. Brother and BRANNON are present and welcome my visit. Brother updates this neurobiologist about the families decision for comfort care and the desire to have spiritual care support at this time. Facilitated a life review and considered matters of diana and belief. Family display evidence of both appropriate grief and hope. Prayed with family and Pt. Family verbalized gratitude for the spiritual care visit."
--- NOTE | 2022-12-23 10:22 | NUR ---
MORNING AND TRANSITION TO COMFORT CARE: DURING SBT THIS AM, PATIENT BECAME INCREASINGLY AGITATED. PATIENT OPENING EYES AND NODDING IN RESPONSE TO QUESTIONS. HOWEVER, PATIENT INCREASINGLY KICKING LEGS AND LIFTING TORSO OFF THE BED. PATIENT UNCONSOLABLE BY RN OR FAMILY AT THE BEDSIDE. RESUMED PROPOFOL AND ADMINISTERED PRN PAIN MEDICATIONS. PATIENT ABLE TO REST COMFORTABLY AND TOLERATE THE VENT. THIS MORNING FAMILY MET WITH DR. BARBOSA AND MADE THE DECISION TO TRANSITION TO COMFORT CARE. COMFORT CARE ORDERS IN PLACE. SON SHIRA, SISTER IN LAW JUNE AND BROTHER SHIRA AT BEDSIDE THIS AM. RN SPOKE WITH OTHER SON ERIKA TO PROVIDE UPDATE ON THE SITUATION. HE EXPRESSED APPRECIATION AND REPORTED THAT HE DOES NOT WANT TO BE AT BEDSIDE DURING THIS TRANSITION.
--- NOTE | 2022-12-23 11:35 | NUR ---
EXTUBATION: PATIENT EXTUBATED TO ROOM AIR AT 11:00. PREMEDICATED PATIENT WITH MORPHINE. MEDICATED PATIENT WITH ATIVAN FOR AGITATION AND MORPHINE FOR AIR HUNGER POST EXTUBATION. BROTHER AND SISTER IN LAW AT BEDSIDE. SPIRITUAL CARE LILLY ALSO AT BEDSIDE. PATIENT APPEARS COMFORTABLE.
--- NOTE | 2022-12-23 12:55 | NUR ---
"Spiritual Care Visit | Comfort Care/EOL Decisions When Pt. was extubated this strap buckler machine escorted family to ICU waiting room. After Pt. is settled, came to bedside with the family. Facilitated life review. Scripture is read and prayers are given. EOL Education is given and the family decided on [facility] for the home. Volunteer Therapy Musician came to bedside and played for almost 30 minutes. More scripture is read. Informed ICU charge nurse of home decision. Will remain available to Pt. and family."
--- NOTE | 2022-12-23 14:54 | NUR ---
"SPiritual Care| EOL Family Support Pt. is on comfort car e and is lingering. Facilitated much life review wirh family. Considered matters of diana and belief. Prayed with family and for Pt. Will continue to be available. [facility] is the home the family has chosen."
--- NOTE | 2022-12-23 15:05 | NUR ---
PATIENT PASSING: PATIENT PASSED AT 15:05. VERIFIED WITH MEET WOOTEN RN. DR. SINGH AT BEDSIDE. DR. BARBOSA, COIL REWIND MACHINE OPERATOR AND JOB SERVICE CONSULTANT NOTIFIED. CALLED DONOR LINE AND FAXED REQUESTED DOCUMENTS. ICE PLACED ON EYES. PATIENTS BROTHER SHIRA, SISTER IN LAW JUNE, AND SON ERIKA NOTIFIED. JUNE AND SHIRA WERE AT BEDSIDE THROUGHOUT THE MORNING. SPIRITUAL CARE LUPE AND MUSIC THERAPIST AT BEDSIDE DURING THE MORNING WELL. PATIENT CALM AND COMFORTABLE THROUGHOUT THE SHIFT. COMFORT CARE CART AT BEDSIDE. FAMILY PROVIDED WITH A PERSONALIZED REMEMBERANCE VOGT CHAIN. FAMILY ABLE TO RETURN TO THE BEDSIDE POST PASSING AND SAY THEIR FINAL GOODBYES. FAMILY EXPRESSED APPRECIATION OF THE CARE PROVIDED.
--- NOTE | 2022-12-23 17:26 | NUR ---
FINAL DISCHARGE: PATIENT DISCHARGED AT 16:40 WITH [facility] PATTERN LAYOUT WORKER ARNOL CAAL. NO PERSONAL BELONGINGS LEFT IN THE ROOM. INVASIVE LINES AND TUBES REMOVED.
--- NOTE | 2022-12-23 18:12 | NUR ---
pt transitioned to comfort care. theraputic care for family comfort quilt placed. chaplian called and music therapy initiated. Pt brother left and pt passed a few minutes after. family notified.
== END 2022-12-23 15:05 | DRG 80 ==
LOC: ER 04:56 → ICUE 04:57
PROVIDERS: Emergency Medicine; Internal Medicine Critical Care Medicine; ADMIT Internal Medicine
PROC: 0BH17EZ Insertion of Endotracheal Airway into Trachea, Via Natural or Artificial Opening (ICD-10-PCS; 2022-12-15)
PROC: 4A133R1 Monitoring of Arterial Saturation, Peripheral, Percutaneous Approach (ICD-10-PCS; 2022-12-15)
PROC: 06HY33Z Insertion of Infusion Device into Lower Vein, Percutaneous Approach (ICD-10-PCS; 2022-12-15)
PROC: 5A1945Z Respiratory Ventilation, 24-96 Consecutive Hours (ICD-10-PCS; 2022-12-15)
PROC: 0DH67UZ Insertion of Feeding Device into Stomach, Via Natural or Artificial Opening (ICD-10-PCS; 2022-12-16)
PROC: 3E033XZ Introduction of Vasopressor into Peripheral Vein, Percutaneous Approach (ICD-10-PCS; 2022-12-16)
PROC: 5A1955Z Respiratory Ventilation, Greater than 96 Consecutive Hours (ICD-10-PCS; principal; 2022-12-17)
PROC: 5A09357 Assistance with Respiratory Ventilation, Less than 24 Consecutive Hours, Continuous Positive Airway Pressure (ICD-10-PCS; 2022-12-17)
DX: E03.5 Myxedema coma (principal); G92.8 Other toxic encephalopathy; J96.02 Acute respiratory failure with hypercapnia; J15.1 Pneumonia due to Pseudomonas; I31.39 Other pericardial effusion (noninflammatory); I67.89 Other cerebrovascular disease; E87.20 Acidosis, unspecified; M62.82 Rhabdomyolysis; E87.1 Hypo-osmolality and hyponatremia; E87.29 Other acidosis; J96.11 Chronic respiratory failure with hypoxia; R57.9 Shock, unspecified; J44.0 Chronic obstructive pulmonary disease with (acute) lower respiratory infection; R56.9 Unspecified convulsions; Z51.5 Encounter for palliative care; Z66 Do not resuscitate; T68.XXXA Hypothermia, initial encounter; R00.1 Bradycardia, unspecified; J43.9 Emphysema, unspecified; I25.10 Atherosclerotic heart disease of native coronary artery without angina pectoris; E78.5 Hyperlipidemia, unspecified; E03.9 Hypothyroidism, unspecified; F41.9 Anxiety disorder, unspecified; D69.6 Thrombocytopenia, unspecified; M85.80 Other specified disorders of bone density and structure, unspecified site; Z87.81 Personal history of (healed) traumatic fracture; Z98.890 Other specified postprocedural states; Z87.891 Personal history of nicotine dependence; Z88.2 Allergy status to sulfonamides; Z88.5 Allergy status to narcotic agent; Z79.890 Hormone replacement therapy; Z86.16 Personal history of COVID-19; Z79.2 Long term (current) use of antibiotics
CPT/HCPCS: 31500; 31720; 36415; 36556; 36569; 36600; 51702; 70450; 71045; 71260; 72125; 74177; 80048; 80053; 80069; 81001; 82140; 82330; 82533; 82550; 82803; 82947; 83605; 83735; 83880; 83930; 84100; 84439; 84443; 84484; 85014; 85018; 85025; 85610; 85730; 86022; 87040; 87070; 87077; 87186; 87205; 93005; 93010; 93306; 93308; 93321; 94002; 94003; 94640; 94660; 94762; 95819; 96361-59; 96365-59; 96375-59; 99291-25; 99292; A9270; C1751; C9113; G0480; J0461; J0612; J0692; J1265; J1650; J1720; J1940; J1953; J2060; J2270; J2405; J2543; J2704; J2765; J3010; J3480; J7030; J7050; J7060; P9047; Q9967